=== PATIENT | male | born 1955 | race Caucasian/White ===

== ENCOUNTER 2019-10-15 15:45 | Inpatient (IN) | payer OTHER ==
[2019-10-15 16:50] LABS: Actual Bicarbonate (HCO3a) 22.7 mEq/L (22-28); CO2 Tension 34.2 mmHg (35.0-45.0); Calcium, Ionized 0.95 mmol/L (1.12-1.30); Carboxyhemoglobin (COHb) 0.3 gm% (0.0-3.0); Hemoglobin (Hb) 9.9 g/dL (14.0-18.0); O2 Tension (PaO2) 322.6 mmHg (> 80.0); Potassium - ABG Lab 4.05 mmol/L (3.70-5.30); pH, Arterial 7.44 (7.35-7.45)
[2019-10-15 16:53] LABS: Puncture Site RBRACH
[2019-10-15] MEDS ORDERED: Ventilator Sedation Protocol 1 EACH FS SCH (16:59)
[2019-10-15] MEDS ORDERED: Acetaminophen 650 MG Suppository PR PRN (16:59)
[2019-10-15] MEDS ORDERED: Norepinephrine 8 MG/0.9% NS 250 ML IVPB SCH (17:00)
[2019-10-15] MEDS ORDERED: Sodium Chloride 0.9% 1,000 ML IV SCH ×2 (17:00→19:00)
--- NOTE | 2019-10-15 17:26 | RAD ---
PORTABLE CHEST: 10/15/19 HISTORY: Sepsis. Endotracheal and NG tubes are in satisfactory position. Heart size is within normal limits for portab le technique. Pacemaker is present. Pulmonary vascular engorgement and increased interstitial alveola r lung changes mainly in the perihilar distribution with small effusions. IMPRESSION: Findings suggesting pulmonary edema. POS: PRIYANKA
[2019-10-15] MEDS ORDERED: Piperacillin/Tazobactam 4.5 GM VIAL ONE (17:43)
[2019-10-15 17:48] LABS: #Eosinphils 0.1 thou/uL (0.0-0.7); #Lymphocytes 0.6 thou/uL (1.20-3.40); #Monocytes 0.9 thou/uL (0.11-0.59); #Neutrophils 10.8 thou/uL (1.40-6.50); %Basophils 0.3 % (0.0-1.0); %Eosinophils 0.7 % (0.0-10.0); %Lymphocytes 4.6 % (21.0-51.0); %Monocytes 6.9 % (0.0-10.0); %Neutrophils 87.5 % (42.0-75.0); Hemoglobin 10.1 g/dL (14.0-18.0); Mean Corpuscular HGB CONC 32.6 g/dL (32.0-36.0); Mean Corpuscular Hemoglobin 33.6 pg (27.0-31.0); Platelet Count 159 thou/uL (130-400); RBC Distribution Width 12.8 % (11.5-14.5); White Blood Cell (WBC) Count 12.3 thou/uL (4.8-10.8)
[2019-10-15 18:10] LABS: ALT (SGPT) 83 U/L (8-55); AST (SGOT) 175 U/L (5-34); Albumin 2.8 g/dL (3.4-4.8); Alkaline Phosphatase 81 U/L (40-110); Anion Gap 17 mmol/L (10-20); BUN (Urea Nitrogen) 17 mg/dL (8.4-25.7); Bilirubin, Total 1.8 mg/dL (0.2-1.2); Calc. Creatinine Clearance 43 mL/min (70-130); Calcium 7.1 mg/dL (7.8-10.44); Carbon Dioxide 25 mmol/L (23-31); Chloride 95 mmol/L (98-107); Estimated GFR-MDRD 53; Globulin 2.7 g/dL (2.4-3.5); Glucose 145 mg/dL (80-115); Potassium 4.4 mmol/L (3.5-5.1); Protein, Total 5.5 g/dL (5.8-8.1); Sodium 133 mmol/L (136-145)
[2019-10-15] MEDS ORDERED: fentaNYL Citrate/PF 2,000 MCG in Sodium Chloride 0.9% 60 ML IV SCH (18:15)
[2019-10-15] MEDS ORDERED: DISCONTINUE PREVIOUS NARCOTIC PAIN MEDICATIONS AND BENZODIAZEPINES FS SCH (18:15)
[2019-10-15] MEDS ORDERED: Propofol 1,000 MG/100 ML VIAL IV PRN (18:15)
[2019-10-15] MEDS ORDERED: Lorazepam 2 MG/ML VIAL SLOW IVP PRN (18:15)
[2019-10-15] MEDS ORDERED: Propofol BOLUS 1,000 MG/100 ML VIAL IV PRN (18:15)
[2019-10-15] MEDS ORDERED: Morphine 2 MG/ML SYRINGE SLOW IVP PRN (18:15)
[2019-10-15] MEDS ORDERED: Fentanyl BOLUS 250 ML IVPB PRN (18:15)
[2019-10-15 18:49] LABS: Troponin I 1.195 ng/mL (< 0.028)
[2019-10-15] MEDS ORDERED: Vancomycin 1 GM in Premix Bag 1 BAG IVPB SCH (21:00)
[2019-10-15 21:11] LABS: Lactic Acid 4.8 mmol/L (0.5-2.2)
--- NOTE | 2019-10-15 21:15 | CON ---
DATE OF CONSULTATION: 10/15/2019 CHIEF COMPLAINT: Status post resuscitation. HISTORY OF PRESENT ILLNESS: The patient is a 64-year-old male, resident of [facility]. He has a past history notable for Hodgkin lymphoma treated in the early with what appears to be radiation and chemotherapy. He additionally has a history of chronic kidney disease, hypertension, coronary artery disease with a known reduced ejection fraction of approximately 10% to 15% based on echocardiogram done in May 2019. At that time, the patient had a pacing defibrillator placed. The patient was at the medical unit today when he began to complain of chest pain. According to the nurse at the unit with whom I had a conversation, he described it as pressure, graded 7/10. Onset apparently occurred before he went to the bathroom, but it was accentuated while on the commode. His initial blood pressure was 102 /71, heart rate 76. The patient denied any cough, congestion, or fever. 50 other residents of his dormitory are currently in isolation due to one inmate who has been transferred to [place] and COVID test is pending. The patient received nitroglycerin x1 and aspirin at the unit. His blood pressure fell to approximately 95/62. EMS was notified and at the time of their arrival, the patient's blood pressure was 87/59. The patient was transferred to the emergency room at [facility] at which time he was continuing to complain of pain. His initial evaluation there included an electrocardiogram with sinus tachycardia, left anterior hemiblock, and lateral T-wave inversions which might represent ischemia. His laboratory additionally included normal white count with hemoglobin 10.9. Sodium was 132, his CO2 was 33, creatinine 1.3 with predicted GFR of 59. Liver tests were within normal limits. Total CK is elevated at 433 with MB of 5.8 and relative index of 1.3%. Troponin was negative at 0.03. Influenza A and B were negative. BNP is 770. His lactic acid was 3.8. His chest x-ray showed borderline cardiomegaly with central vascular predominance suggesting volume overload. While in the emergency room, the patient had a CTA of the chest demonstrating moderate right and small left pleural effusion. No obvious pulmonary embolus was identified. He had an acute deterioration in status and at approximately 1350 CPR was initiated. This was continued intermittently based on notes I have seen from the guards with final congregation of pulse approximately 37 minutes thereafter. He was presumed to have had a possible embolus and received empiric administration of tPA following which the patient had the rapid development of hematoma in the right pectoralis muscle. He was placed on pressor therapy and has been transferred to [facility] for ICU management. I have been unable to obtain a history from the patient. I have spoken to the nurse at the [facility] unit. I reviewed the available medical record. According to the chart the patient is a 64-year-old male with no reported medical allergies. MEDICATIONS: At the unit include; 1. Aspirin 81 daily. 2. Atorvastatin 40 daily. 3. Coreg 3.125 b.i.d. 4. Lasix 40 daily. 5. Lisinopril 2.5 daily. 6. Potassium 10 mEq daily. SOCIAL HISTORY: According to the chart, the patient has never smoked. PAST MEDICAL HISTORY: Remarkable for coronary disease with known severe depressed LV function and subsequent placement of a pacing defibrillator. He has a history of Hodgkin lymphoma in the early 1999s. He has multiple tattoos over the chest consistent with radiation port in a mantle distribution. He does not have history of known liver disease or previous stroke. The chart reflects a diagnosis of hypothyroidism, although he is not on any supplementation. He does not have a history of known tuberculosis. REVIEW OF SYSTEMS: Unobtainable from the patient at this time due to intubated, nonresponsive status. FAMILY HISTORY: Unobtainable. PHYSICAL EXAMINATION: VITAL SIGNS: Blood pressure is currently 132/88, heart rate 68, pulse oximetry 100%. He is orally intubated with a 7.5 endotracheal tube. I have made ventilator adjustments including reduction in FiO2 from 60% to 40% and I reduced his PEEP. His tidal volume is 450. Backup rate is 16, pressure support of 12. The patient remains on low-dose norepinephrine. GENERAL: He is an asthenic gentleman who appears older than his stated age. It was reports by the guards that he apparently induces vomiting. He is not responsive to verbal stimuli. HEENT/NECK: Shows moderately dilated pupils, which are not reactive to light. There is no abnormal doll's eye maneuver. His oropharynx is difficult to assess , although he is edentulous. I do not see obvious heath. He has no JVD. He has no cervical lymphadenopathy. He has no underlying icterus. CHEST: Shows clear lung bob without wheezing. He is not assisting above the current ventilator rate. He has hypertrophy of the right pectoralis which is reported to have acutely developed following tPA consistent with hematoma. There is no evidence of subcu emphysema. HEART: Regular rate and rhythm. I do not hear a murmur. ABDOMEN: Soft. There is no organomegaly. Bowel sounds are normal. : Deferred. EXTREMITIES: Show no edema. His lower legs and feet are cool, but not dusky or cyanotic. He does have palpable brachial pulse. I do not feel radial pulses. SKIN: Shows tattoos over the chest and abdomen consistent with his previous radiation therapy. NEUROLOGIC: Shows no response to verbal stimuli. Cranial nerves are as above. I do not get any movement to Babinski testing. There is no withdrawal to pain. His DTRs are currently flaccid. LABORATORY DATA: Chemistries done and other studies at [facility] prior to transfer had been reviewed. He has had a chest x-ray here following admission, which shows good placement of his endotracheal tube. There was bilateral central consolidation most consistent with pulmonary edema. His blood gas has shown good oxygenation status with pH 7.44, CO2 of 32, pO2 of 322, and bicarbonate of 28. White count is now at 12,300 and hemoglobin is 12.1. His lactic acid is 5.1. Cortisol is normal at 15. His AST and ALT have increased modestly since taken earlier today at [facility]. IMPRESSION: 1. Status post cardiac arrest, most likely due to underlying cardiomyopathy. Whether this is true ischemic event or simply the natural deterioration of rhythm associated with profound cardiomyopathy is unclear. His troponins are still pending. His x-ray is consistent with pulmonary edema. His elevated liver tests are also consistent with shock. I do not think that his cardiac arrest was related to pulmonary embolus and seems to be at least decently excluded by his preservation of alveolar to arterial gradient and a CT which did not show filling defects. We will continue supportive care from an OR perspective. 2. Prolonged cardiopulmonary resuscitation with apparent anoxic/hypoxic central nervous system injury. At this time, the patient is not making any appropriate responses. He has not had any seizure activity. We will continue to follow for at least 24 hours before making a more formal determination. The patient does have a outside hospital do not resuscitate status and his code status will be changed to reflect do not resuscitate. 3. Possible COVID exposure. The patient was in a dormitory with an individual who is currently a suspect. We will keep him in COVID isolation until we hear from the index case. If the index case is negative, I think that we can reasonably discontinue COVID isolation at that time. 4. Remote history of lymphoma, presumably in remission. 5. 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 6. Known atherosclerotic vascular disease with severely depressed left ventricular function. 7. History of mild renal insufficiency. PLAN: The patient is currently receiving ventilatory support and I have made ventilator adjustments as described above. We converted him from full code to DNR status. He continues on pressors. We will follow his neurologic status, although I greatly suspect he has suffered a fairly profound anoxic injury. The severity of his LV function portends an extremely poor prognosis. He is on empiric antibiotics pending culture return, although I think it is very unlikely this represents pneumonia as a precipitating cause. He will remain on COVID precautions until we have results of his possible contact. Globally, his prognosis is extremely poor. Critical Care was rendered for 65 minutes including direct care of the patient, converstaion with the hospitalist and the nurse at the [facility] and review of the record. The Pulmonary Service will continue to follow and provide additional assistance as appropriate. Thank you for this consultation. Job ID: [id number] MTDDiaz
[2019-10-15 22:18] LABS: Anion Gap 24 mmol/L (10-20); Calc. Creatinine Clearance 42 mL/min (70-130); Calcium 7.1 mg/dL (7.8-10.44); Carbon Dioxide 16 mmol/L (23-31); Chloride 98 mmol/L (98-107); Estimated GFR-MDRD 52; Glucose 145 mg/dL (80-115); Sodium 133 mmol/L (136-145)
[2019-10-15 22:28] LABS: BUN (Urea Nitrogen) 19 mg/dL (8.4-25.7)
[2019-10-15 22:29] LABS: Magnesium 2.1 mg/dL (1.6-2.6)
[2019-10-16] MEDS: Piperacillin/Tazobactam 3.375 GM in Sodium Chloride 0.9% 100 ML IVPB SCH ×4 (00:13→17:53)
[2019-10-16] MEDS: EPINEPHrine 1 MG, Admixture Fee 1 EACH in Dextrose 5% in Water 250 ML IVPB SCH ×3 (00:46→11:07)
[2019-10-16] MEDS ORDERED: Sodium Chloride 0.9% 1,000 ML IV SCH (04:45)
[2019-10-16 07:58] LABS: Actual Bicarbonate (HCO3a) 23.2 mEq/L (22-28); Base Excess (BEa) 0.2 mEq/L (-2.0 to +3.0); CO2 Tension 30.7 mmHg (35.0-45.0); Calcium, Ionized 0.91 mmol/L (1.12-1.30); Hemoglobin (Hb) 8.1 g/dL (14.0-18.0); O2 Tension (PaO2) 70.3 mmHg (> 80.0); Potassium - ABG Lab 4.13 mmol/L (3.70-5.30)
[2019-10-16 08:04] LABS: Puncture Site L.B.
[2019-10-16 08:05] LABS: ALV-art Gradient 176.525 (0-20)
--- NOTE | 2019-10-16 09:17 | PRG ---
DATE OF SERVICE: 10/16/2019 SUBJECTIVE: The patient awakened during the night and is now alert and follow simple commands. He nods his head and confirms that he is having pain in his chest most likely related to CPR. He does not have complaints of air hunger. OBJECTIVE: VITAL SIGNS: Blood pressure today is reported at 87/53. He has had relatively even in and out over the past 24 hours. He is not requiring sedation. He remains intubated and he is assisted in the ventilator. LUNGS: Showed diminished breath sounds throughout all lung bob. HEART: Regular rate and rhythm with monitor demonstrating sinus rhythm at 98. His pulse ox is 100%. ABDOMEN: Soft. There is no change in the hematoma over the right pectoralis area. He has no peripheral edema. EXTREMITIES: His lower feet remained cool, but not cyanotic. LABORATORY DATA: Electrolytes this morning include sodium 133, potassium 5.0, bicarbonate is 16. BUN 19, creatinine 1.39. Lactic acid peaked at 5.1, is down to 4.8. Troponin peaked at 1.2. IMPRESSION: 1. Status post cardiopulmonary arrest. The patient presented with complaints of chest pain and while in the emergency room had cardiac arrest. He had markedly prolonged resuscitation, although it now appears that he has awakened without significant neurologic defect. His troponin is slightly elevated. He does have known severe cardiomyopathy with an EF of 15% and presumably that is the underlying etiology for his cardiac arrest. 2. Rule out COVID. The patient is from [facility] unit, where he lives in a dormitory with a suspect. He remains in COVID isolation until the suspect test has returned. PLAN: 1. We will reduce his IMV and hope to rapidly wean to extubation today, if not tomorrow. 2. Continue antibiotics. Culture today is negative. I think that his radiographic findings are most consistent with pulmonary edema. 3. He will need further cardiac assessment, although likely done on an outpatient basis. I doubt that he has significant options given his known EF of 15%. He is followed at the [facility] at [facility]. Job ID: [id number]
--- NOTE | 2019-10-16 09:33 | RAD ---
PORTABLE CHEST: Date: 10/16/2019 PROVIDED CLINICAL HISTORY: Respiratory insufficiency. FINDINGS: Comparison with 10/15/2019. Significant interval change with respect to the prior examination is not apparent. IMPRESSION: As above. POS: YESIKA
[2019-10-16] MEDS: EPINEPHrine 2 MG, Admixture Fee 1 EACH in Dextrose 5% in Water 250 ML IVPB SCH ×5 (12:46→23:16)
[2019-10-16] MEDS: Lidocaine 5% Patch TD SCH (14:43)
[2019-10-16] MEDS: Ondansetron PF 4 MG/2 ML Vial IVP PRN (17:53)
--- NOTE | 2019-10-16 19:05 | PDOC.EVN ---
Event Note - Event Note Event Note: Chart reviewed. Events noted. Pt was not seen due to PPE preservation policy. PCCM following. Briefly, pt admitted for COVID r/o and CHF exac. COVID result pending, sent from [facility]. Pt was extubated earlier today, continues to need pressor support.
[2019-10-16] MEDS: Vancomycin HCl 750 MG in Sodium Chloride 0.9% 250 ML 250 ML IVPB SCH (21:36)
[2019-10-16] MEDS: Sodium Chloride 0.9% 1,000 ML IV SCH (22:25)
[2019-10-17] MEDS: Piperacillin/Tazobactam 3.375 GM in Sodium Chloride 0.9% 100 ML IVPB SCH ×4 (01:12→17:57)
[2019-10-17] MEDS: Sodium Chloride 0.9% 1,000 ML IV SCH ×2 (01:19→20:59)
[2019-10-17] MEDS: EPINEPHrine 2 MG, Admixture Fee 1 EACH in Dextrose 5% in Water 250 ML IVPB SCH ×6 (02:03→20:59)
[2019-10-17] MEDS: Lidocaine Patch Removal 1 EACH TOP SCH (04:15)
[2019-10-17 04:56] LABS: Anion Gap 21 mmol/L (10-20); BUN (Urea Nitrogen) 30 mg/dL (8.4-25.7); Calc. Creatinine Clearance 35 mL/min (70-130); Calcium 6.9 mg/dL (7.8-10.44); Carbon Dioxide 20 mmol/L (23-31); Chloride 94 mmol/L (98-107); Estimated GFR-MDRD 42; Glucose 108 mg/dL (80-115); Potassium 4.5 mmol/L (3.5-5.1); Sodium 130 mmol/L (136-145)
[2019-10-17 05:05] LABS: Band 36 % (5-11); Hemoglobin 7.4 g/dL (14.0-18.0); Lymphocytes 4 % (21-51); MDiff Complete? YES; Mean Corpuscular HGB CONC 33.1 g/dL (32.0-36.0); Mean Corpuscular Hemoglobin 33.8 pg (27.0-31.0); Mean Platelet Volume 8.2 fL (7.4-10.4); Monocytes 2 % (0-10); Neutrophil 58 % (42-75); Platelet Count 127 thou/uL (130-400); Platelet Morphology Comment Appears Adequate; RBC Distribution Width 13.1 % (11.5-14.5); Red Blood Cell (RBC) Count 2.18 mill/uL (4.70-6.10); White Blood Cell (WBC) Count 20.5 thou/uL (4.8-10.8)
--- NOTE | 2019-10-17 05:17 | HP ---
He is a prisoner, no PCP. HISTORY OF PRESENT ILLNESS: The patient is currently in the [facility] Critical [facility] Unit. He is transferred from the [facility]. He was seen there and evaluated. The patient presented with chest pain of 4 days duration, some shortness of breath. It was noted he is a prisoner on a unit that has a possible COVID case. Denies any cough or fever. Reporrts he has had prior episodes of volume overload. His Lasix is not working as well as usual. He reports some left-sided leg swelling. He notes his normal blood pressure is in the mid 80s to low 90s systolic. His pain is nonexertional. PAST MEDICAL HISTORY: He has a history of coronary artery disease, congestive heart failure, lymphoma/leukemia, hypothyroidism, gastroesophageal reflux disease. PAST SURGICAL HISTORY: Pacemaker. CURRENT HOME MEDICINES: 1. Aspirin 81 mg a day. 2. Atorvastatin 40 mg a day. 3. Coreg 3.125 mg twice a day. 4. Lasix 40 mg a day. 5. Lisinopril 2.5 mg a day. 6. Potassium chloride 10 mEq a day. ALLERGIES: NO KNOWN DRUG ALLERGIES. FAMILY HISTORY: Unobtainable from patient as he is currently intubated and sedated. SOCIAL HISTORY: No alcohol. No tobacco. Unable to obtain code status due to the fact that he is intubated. REVIEW OF SYSTEMS: Unobtainable as patient is intubated, nonresponsive. PHYSICAL EXAMINATION: GENERAL: He is an asthenic male, intubated, nonresponsive. HEAD, EYES, EARS, NOSE, AND THROAT: Reveals pupils dilated, fixed. Negative doll's eyes. Tympanic membranes are clear. Nose is clear. Oral mucous membranes are damp. He has an oral endotracheal tube. CHEST: Decreased breath sounds. Fine rales in the left upper chest and breath sounds are diminished diffusely with no rhonchi or wheezes audible. HEART: Heart sounds were distant. No murmurs or gallops were appreciated. ABDOMEN: Soft. Bowel sounds are diminished. There is no tenderness. No hepatosplenomegaly. No mass. No rebound. EXTREMITIES: Cold with no distinct cyanosis or clubbing. SKIN: No bruises or rash. HEME/LYMPH: No tender or swollen lymph nodes in axilla, inguinal, or cervical area. NEUROLOGIC: Pupils fixed. Negative doll's eyes. Face is symmetric, areflexic, extremities basically flaccid. Toes neutral. PULSES: Carotid, radial, and femoral pulses palpable. Pedal pulses were not palpable. LABORATORY DATA: Laboratory done at the [facility] Emergency Room. EKG; sinus tachycardia, left anterior fascicular block, poor R-wave progression in the precordial leads, diffuse ST-T abnormality, personally reviewed. CBC; white count 5.1, hemoglobin 10.9, platelet count 229,000. Sodium 132, potassium 5.1, chloride 95, CO2 of 33, blood sugar 93, BUN 16, creatinine 1.3, albumin 3.4, bilirubin 1.0, AST 47, ALT 32, alkaline phosphatase 81. CK elevated at 433, CK-MB 5.8, troponin 0.03. Lipase 68. Influenza A/B negative. BNP 770, high normal 0 to 100. UA is unremarkable. Chest x-ray revealed cardiomegaly with increased interstitial densities in the right upper lung zone and right base, small bilateral pleural effusions. CT of the chest, moderate right pleural effusion, small left pleural effusion, right upper lobe parenchymal changes, left subclavian AICD in place. ADMITTING DIAGNOSES: 1. Status post cardiopulmonary arrest, on mechanical ventilation. 2. Shock syndrome, on norepinephrine. 3. COVID suspect. 4. History of congestive heart failure. 5. Coronary artery disease. 6. Pneumonia. 7. Pleural effusions. 8. Hyponatremia. 9. Anemia. 10. Lymphoma/leukemia. 11. Lactic acidosis. PLAN: 1. Pulmonary and Critical Care stitching machine setter consult. 2. Ventilator adjustment per pulmonology. 3. Pressors to keep blood pressure in the 90 to 100 systolic range. 4. Cultures have been obtained. 5. Zosyn and vancomycin. The patient is currently stabilized with a blood pressure of 124/89, pulse 110 on a ventilator. Current arterial blood gases; pH 7.44, pCO2 of 34, PO2 of 326. We will discuss with stitching machine setter when available. An echocardiogram has been ordered. Repeat chest x-ray and EKG have been ordered. Laboratory will be ordered for the a.m. He will remain a COVID suspect in quarantine, pending on the COVID test. Job ID: [id number]
--- NOTE | 2019-10-17 08:30 | PRG ---
DATE OF SERVICE: 10/17/2019 SUBJECTIVE: Mr. Matthews was successfully extubated yesterday and through the night, has been on nasal cannula oxygen. He is alert, but complains of ongoing chest discomfort and shortness of breath associated with cough, associated with thick sputum, which he cannot clear. Some of this preceding his admission, but others are related to the CPR which he received. He denies any fever. Over the night, he has remained on epinephrine drip, falsely targeted I think to a blood pressure higher than his normal. His echocardiogram has an EF of 10% to 15% and the patient states that his normal blood pressure is in the 80s. This is consistent with his medication list including extremely low doses of SAMY inhibitor and Coreg. We will try to reduce the dose and follow his symptoms. Fortunately, his COVID test is negative. PHYSICAL EXAMINATION: VITAL SIGNS: Blood pressure currently 117/57, heart rate 90, saturation 100% on nasal oxygen. He has had significant fluid positive balance of almost 5 L since the time of admission. GENERAL: He has a raspy voice. He is pale and appears older than his stated age. He is awake, alert, and answers questions appropriately. No distress NECK: He does have external jugular venous distention. LUNGS: He has bilateral coarse rhonchi in all lung bob. HEART: Regular rate and rhythm by monitor. I cannot hear S1, S2 due to his underlying lung sounds. ABDOMEN: Soft, mildly distended. There is no guarding or rebound. EXTREMITIES: He has trace ankle edema on the right. LABORATORY DATA: White count 20,500, hemoglobin 7.4, platelet count 117,000. Electrolytes include sodium 130, potassium 4.5, chloride 94, BUN 30, creatinine 1.7. Cultures have been negative. IMPRESSION: 1. Status post cardiac arrest. Most likely due to his severe cardiomyopathy. His peak troponin was 1.5. He has known severe ischemic cardiomyopathy with EF of approximately 15% and has a previously implanted defibrillator. 2. Renal insufficiency. 3. Leukocytosis. 4. Anemia. The patient received tPA at the time of CPR under the mistaken assumption that he might have a pulmonary embolus. Given his congestive heart failure and relative hypotension with the need for pressors, transfusion 1 unit is appropriate. PLAN: At this point, I would gradually reduce his epinephrine and target symptoms more than a specific number. I think his systolic blood pressure is probably in the 80s at best. He remains on empiric antibiotics for his leukocytosis. His x- ray has shown extensive consolidation more centrally suggestive of heart failure and we can try diuresis, but will be challenging given his blood pressure and heart failure status. Fortunately, his COVID test is negative. I have counseled the patient regarding the severity of his heart failure status. Continued length of stay is difficult to project. Job ID: [id number] [facility]
--- NOTE | 2019-10-17 08:51 | RAD ---
PORTABLE CHEST: DATE: 10/17/2019. PROVIDED CLINICAL HISTORY: Central line placement. FINDINGS: Comparison 10/16/2019. Interval extubation and removal of enteric catheter. Interval placement of rig ht subclavian central line, the tip of which overlies expected location of RA. Persistent bilateral airspace disease. No evidence for pneumothorax. Pleural-based opacity involving the right lateral h emithorax inferiorly may reflect fluid and appears more conspicuous than on prior. Cardiac and media stinal silhouette is unchanged in appearance. Vascular calcification and left subclavian cardiac pac ing device are redemonstrated. IMPRESSION: 1. Stable extensive bilateral airspace disease that may reflect pneumonia. 2. Support apparatus changes as above. POS: YESIKA
[2019-10-17] MEDS: Lidocaine 5% Patch TD SCH (17:42)
--- NOTE | 2019-10-17 19:45 | PDOC.EVN ---
Event Note - Event Note Event Note: Chart reviewed. Events noted. Pt was not seen due to PPE preservation policy. PCCM following. Pt was admitted for COVID r/o and CHF exac. Pt was extubated yesterday, continues to need pressor support. Difficulty diuresing given low blood pressure. Consult cardiology for opinion and help with management.
[2019-10-17 20:29] LABS: Vancomycin, Trough 15.5 ug/mL
[2019-10-17] MEDS: Vancomycin HCl 750 MG in Sodium Chloride 0.9% 250 ML 250 ML IVPB SCH (20:59)
[2019-10-18] MEDS: Piperacillin/Tazobactam 3.375 GM in Sodium Chloride 0.9% 100 ML IVPB SCH ×4 (00:06→17:09)
[2019-10-18] MEDS: Lidocaine Patch Removal 1 EACH TOP SCH (03:36)
[2019-10-18] MEDS: Ondansetron PF 4 MG/2 ML Vial IVP PRN ×2 (03:51→12:03)
[2019-10-18 05:01] LABS: Band 20 % (5-11); Hemoglobin 8.8 g/dL (14.0-18.0); Hypochromia SLIGHT = 6-15 cells (100X) (0-5/hpf); Lymphocytes 6 % (21-51); MDiff Complete? YES; Mean Corpuscular Hemoglobin 33.4 pg (27.0-31.0); Mean Corpuscular Volume 98.1 fL (78.0-98.0); Mean Platelet Volume 8.6 fL (7.4-10.4); Metamyelocyte 1 % (0-0); Monocytes 2 % (0-10); Neutrophil 71 % (42-75); Platelet Count 101 thou/uL (130-400); Platelet Morphology Comment Appears Decreased; RBC Distribution Width 14.8 % (11.5-14.5); Red Blood Cell (RBC) Count 2.65 mill/uL (4.70-6.10); White Blood Cell (WBC) Count 18.7 thou/uL (4.8-10.8)
[2019-10-18 05:12] LABS: ALT (SGPT) 397 U/L (8-55); AST (SGOT) 516 U/L (5-34); Albumin 2.6 g/dL (3.4-4.8); Alkaline Phosphatase 88 U/L (40-110); Anion Gap 12 mmol/L (10-20); BUN (Urea Nitrogen) 34 mg/dL (8.4-25.7); Calc. Creatinine Clearance 36 mL/min (70-130); Carbon Dioxide 25 mmol/L (23-31); Chloride 97 mmol/L (98-107); Estimated GFR-MDRD 42; Globulin 2.7 g/dL (2.4-3.5); Glucose 98 mg/dL (80-115); Potassium 3.7 mmol/L (3.5-5.1); Protein, Total 5.3 g/dL (5.8-8.1); Sodium 130 mmol/L (136-145)
--- NOTE | 2019-10-18 08:05 | RAD ---
EXAM: CHEST ONE VIEW HISTORY: On ventilator. Follow-up evaluation. COMPARISON: 10/17/2019 FINDINGS: Right subclavian central venous catheter remains in place. Single lead left subclavian AICD device is also again noted in place. Cardiac silhouette is magnified by projection but stable in size. Pulmonary vascular congestion is again present. Bilateral interstitial and alveolar opacities are aga in seen in the lungs bilaterally greater on the right. Small left and moderate sized right pleural effusions are present. There is increased opacity in the right midlung zone which may represent fluid in the region of the fissure. Calcified mediastinal and left hilar lymph nodes are present. Osteopenia is present. IMPRESSION: 1. Persistent increased interstitial and alveolar opacities bilaterally which may be related to asymm etric pulmonary edema versus infectious process. 2. Small left and moderate size right pleural effusions.
--- NOTE | 2019-10-18 09:35 | PRG ---
DATE OF SERVICE: 10/18/2019 SUBJECTIVE: A 64-year-old gentleman, intubated, he was extubated yesterday. He is doing well. No respiratory distress. OBJECTIVE: VITAL SIGNS: Temperature 97, pulse 90, blood pressure 106/69, respirations 18. His I's and O's have been consistently negative. CHEST: Bilateral rhonchi and crackles. CARDIAC: Normal S1 and S2. No gallops. ABDOMEN: No masses. LABORATORY DATA: White count 18,000, H and H 8.8 and 26, platelet count is 101. Creatinine 1.6, sodium 130. Elevated liver function; AST and ALT 516 and 397. ASSESSMENT: Congestive cardiomyopathy, respiratory failure, right pleural effusion, renal failure, electrolyte imbalance. At this stage, made a DNR. Agree with supportive care. We will probably switch him over to oral antibiotics in the next 24 hours. His EF is 15%. He can probably be moved to telemetry. Job ID: [id number]
[2019-10-18] MEDS: Sodium Chloride 0.9% 1,000 ML IV SCH (11:52)
--- NOTE | 2019-10-18 12:19 | PQF ---
CLINICAL DOCUMENTATION IMPROVEMENT CLARIFICATION FORM: ICD-10 Updated PLEASE DO AN ADDENDUM TO THE PROGRESS NOTE WITH ANY DOCUMENTATION UPDATES OR ADDITIONS AND CARRY THROUGH TO DC SUMMARY. THANK YOU. DATE: 10/18/19 ATTN: DR. DUNCAN Please exercise your independent, professional judgment in responding to the clarification form. Clinical indicators are provided on the bottom of this form for your review Please check appropriate box(es): [ ] Sepsis present on admission [x ] Sepsis NOT present on admission [ ] Unable to determine Due to: Due to: [ ] Device (please specify) [ ] Implant [ ] Graft [ ] Infusion [ ] SIRS due to non-infectious process (please specify etiology) [ ] with organ dysfunction [ ] without organ dysfunction [ ] Severe sepsis present on admission [ ] Severe Sepsis NOT present on admission [ ] Unable to determine with acute organ dysfunction of: ____ [ ] Septic Shock present on Admission [ ] Septic Shock NOT present on Admission [ ] Unable to determine [ ] Localized infection without sepsis [ ] Other diagnosis [ ] Unable to determine For continuity of documentation, please document condition throughout progress notes and discharge summary. Thank You. 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 All Rights Reserved [email or web address] [facility]
--- NOTE | 2019-10-18 12:30 | PQF ---
CLINICAL DOCUMENTATION IMPROVEMENT CLARIFICATION FORM: ICD-10 Updated PLEASE DO AN ADDENDUM TO THE PROGRESS NOTE WITH ANY DOCUMENTATION UPDATES OR ADDITIONS AND CARRY THROUGH TO DC SUMMARY. THANK YOU. Date: 10/18/19 ATTN: DR. DUNCAN Please exercise your independent, professional judgment in responding to the clarification form. Clinical indicators are provided on the bottom of this form for your review Please check appropriate box(s): [ ] Protein Calorie Malnutrition: [ ] Mild [ ] Moderate [ ] Severe [ ] Other Malnutrition (please specify) __ [ ] Underweight without malnutrition [ ] Cachexia [ ] Other diagnosis [ ] Unable to determine In addition, please specify: Present on Admission (POA): [ ] Yes [ ] No [ ] Unable to determine CLINICAL INDICATORS - SIGNS / SYMPTOMS / LABS / RESULTS AND LOCATION IN MR "MALNUTRITION" PER CONSULTATION REPORT 10/14 "SEVERE TEMPORAL MUSCLE WASTING" (DIETARY ASSESSMENT 10/17) BMI 18.2 RISKS: "SELF-INDUCED BULEMIA" PER [facility]DC NURSE (DIETARY ASSESSMENT 10/15) TREATMENT: DIETARY CONSULT NUTRITIONAL SUPPLEMENTS Moderate Malnutrition (in acute illness) Energy Intake: <75% of estimated energy requirement for > 7 days Weight Loss: 1-2%/1 week; 5%/ 1 month; 7.5%/3 months Other: mild body fat loss; mild muscle mass loss; mild fluid accumulation; Severe Malnutrition (in acute illness) Energy Intake: < 50% of estimated energy requirement for > 5 days Weight Loss: >1-2%/1 week; >5%/1 month; >7.5%/3 months Other: moderate body fat loss; moderate muscle mass loss; moderate- severe fluid accumulation; measurably reduced ophthalmology technician strength Moderate Malnutrition (in chronic illness) Energy Intake: <75% of estimated energy requirement for >1 month Weight Loss: 5%/1 month; 7.5%/3 months; 10%/6 months; 20%/1 year Other: mild body fat loss; mild muscle mass loss; mild fluid accumulation Severe Malnutrition (in chronic illness) Energy Intake: <75% of estimated energy requirement for >1 month Weight Loss: >5%/1 month; >7.5%/3 months; >10%/6 months; >20%/1 year Other: severe body fat loss; severe muscle mass loss; severe fluid accumulation ; measurably reduced ophthalmology technician strength (This form is maintained as a part of the permanent medical record) 2014 [employer], [employer]. All Rights Reserved [email or web address]
--- NOTE | 2019-10-18 12:47 | PQF ---
CLINICAL DOCUMENTATION IMPROVEMENT CLARIFICATION FORM: ICD-10 Updated PLEASE DO AN ADDENDUM TO THE PROGRESS NOTE WITH ANY DOCUMENTATION UPDATES OR ADDITIONS AND CARRY THROUGH TO DC SUMMARY. THANK YOU. DATE: 10/18/19 ATTN: DR. DUNCAN Please exercise your independent, professional judgment in responding to the clarification form. Clinical indicators are provided on the bottom of this form for your review Please check appropriate box(s) to clarify if the following diagnosis has been ruled in or ruled out: PNEUMONIA [ x ] Ruled in diagnosis [x ] Continue to treat [ ] Resolved [ ] Ruled out diagnosis [ ] Improving [ ] Cannot rule out diagnosis [ ] Other diagnosis [ ] Unable to determine In addition, please specify: Present on Admission (POA): [ ] Yes [ ] No [ ] Unable to determine For continuity of documentation, please document condition throughout progress notes and discharge summary. Thank You. CLINICAL INDICATORS - SIGNS / SYMPTOMS / LABS / RESULTS AND LOCATION IN MR H&P: "PNEUMONIA" CXR 10/14: "PULMONARY EDEMA" "PULMONARY VASCULAR ENGORGEMENT AND INCREASED ALVEOLAR LUNG CHANGES MAINLY IN THE PERIHILAR DISTRIBUTION WITH SMALL EFFUSIONS" CXR 10/16: "STABLE EXTENSIVE BILATERAL AIRSPACE DISEASE THAT MAY REFLECT PNEUMONIA " WBC /: 12.3 WBC /5: 20.5 RISKS: PRISONER COVID-19 EXPOSURE (H&P /) TREATMENT: MECHANICAL VENTILATION IV ZOSYN (10/14-PRESENT) IV VANCOMYCIN (10/15-PRESENT) PULMONARY CONSULT CHEST XRAY 10/14, 10/16 (This form is maintained as a part of the permanent medical record) 2014 [employer]. All Rights Reserved [email or web address]
--- NOTE | 2019-10-18 13:00 | PQF ---
CLINICAL DOCUMENTATION IMPROVEMENT CLARIFICATION FORM: ICD-10 Updated PLEASE DO AN ADDENDUM TO THE PROGRESS NOTE WITH ANY DOCUMENTATION UPDATES OR ADDITIONS AND CARRY THROUGH TO DC SUMMARY. THANK YOU. DATE: 10/18/19 ATTN: DR. DUNCAN Please exercise your independent, professional judgment in responding to the clarification form. Clinical indicators are provided on the bottom of this form for your review Please check appropriate box(s): HEART FAILURE: A. ACUITY [ ] Acute [x ] Acute on Chronic [ ] Chronic B. TYPE [ x ] Systolic / HFrEF [ ] Diastolic / HFpEF [ ] Combined Systolic / Diastolic [ ] Hypertensive Heart and Kidney disease [ ] Hypertensive Heart Disease [ ] Hypertensive Kidney Disease [ ] Other diagnosis [ ] Unable to determine In addition, please specify: Present on Admission (POA): [ ] Yes [ ] No [ x ] Unable to determine For continuity of documentation, please document condition throughout progress notes and discharge summary. Thank You. CLINICAL INDICATORS - SIGNS / SYMPTOMS / LABS / RESULTS AND LOCATION IN EMR EVENT NOTE 10/16: "CHF EXACERBATION" "LEFT LEG SWELLING" (PER H&P) "BILATERAL RHONCHI AND CRACKLES" / "CONGESTIVE CARDIOMYOPATHY" (PER PULMONARY NOTE 10/17) ECHO REPORT 10/15: "EF 10-15%" "LEFT VENTRICULAR SIZE SEVERELY INCREASED" BNP 770 (PER H&P 10/14) RISKS: H/O CHF (H&P 10/14) H/O CAD (H&P) TREATMENT: ECHOCARDIOGRAM 10/15 CARDIAC MONITORING INTUBATION AND MECHANICAL VENTILATION (This form is maintained as a part of the permanent medical record) 2014 [employer]. All Rights Reserved [email or web address]
[2019-10-18] MEDS ORDERED: Famotidine 20 MG TAB PO SCH (14:15)
[2019-10-18] MEDS ORDERED: guaiFENesin ER 600 MG TAB PO SCH (14:15)
--- NOTE | 2019-10-18 14:22 | CON ---
DATE OF CONSULTATION: 10/18/2019 REASON FOR CONSULTATION: Cardiac arrest. HISTORY OF PRESENT ILLNESS: Mr. Matthews is a 64-year-old gentleman with a history of advanced ischemic cardiomyopathy, status post CA and stent placement. He had an ICD placed in May. This was placed in [facility] in [place]. He is currently an inmate. He recently presented with shortness of breath. He had lower extremity edema in addition to PND. He states he also had chest pressure, but chest pressure was worse with taking a deep breath. He apparently was in the [place] with increased number of inmates with COVID. He has been COVID negative. His most recent echo dated 10/16/2019, with LVEF of 10% to 15% with moderately enlarged right ventricle without aortic stenosis. Ilxdsyki-ao-ceejex pulmonary hypertension present. PAST MEDICAL HISTORY: 1. Known advanced ischemic cardiomyopathy, status post ICD placement. 2. Previous CA. 3. Previous stent placement. 4. Lymphoma. 5. Hypothyroidism. 6. Acid reflux. HOME MEDICATIONS: Include: 1. Aspirin. 2. Atorvastatin. 3. Coreg. 4. Lasix. 5. Lisinopril. 6. Potassium. ALLERGIES: NONE. SOCIAL HISTORY: No current tobacco or alcohol use. REVIEW OF SYSTEMS: A 10-point review of systems is reviewed and is as above, otherwise negative. PHYSICAL EXAMINATION: VITAL SIGNS: Blood pressure 102/59, pulse 89, temperature 98.3. GENERAL: The patient is a pleasant gentleman, in no acute distress. He does appear older than stated age. HEAD, EYES, EARS, NOSE AND THROAT: Sclerae without icterus. Mouth: Moist mucous membranes, normal palate. NECK: No jugular venous distention. Carotid upstroke is brisk. No bruits bilaterally. LUNGS: Clear to auscultation. HEART: Regular rate and rhythm, normal S1 and S2. ABDOMEN: Soft, nontender, nondistended. EXTREMITIES: No edema. PERTINENT LABORATORY DATA: Hemoglobin 8.8, hematocrit 26, white blood cell count 18.7. Peak troponin 1.2. IMPRESSION: 1. Cardiac arrest. 2. Ischemic cardiomyopathy. 3. Status post stent placement. RECOMMENDATIONS: Mr. Matthews has been told in the past that he has advanced cardiomyopathy. He would like to proceed with a more conservative approach. His symptoms do not appear to be anginal. His symptoms are worse with taking a deep breath. He also now, since CPR was performed, has chest wall tenderness with a hematoma overlying the right chest. At this point, continue conservative therapy. We would like to interrogate his ICD. Job ID: [id number]
[2019-10-18] MEDS: Lidocaine 5% Patch TD SCH (15:10)
[2019-10-18] MEDS ORDERED: Furosemide 40 MG/4 ML VIAL SLOW IVP SCH (18:15)
--- NOTE | 2019-10-18 18:16 | PDOC.HOSPP ---
- Subjective Encounter Date: 10/18/19 Encounter Time: 18:13 Subjective: Feeling SOB. Same as yesterday. Cough productive of dark blood tinged sputum. Reports edema. - Objective Vital Signs & Weight: Vital Signs (12 hours) Temp Pulse Resp BP Pulse Ox 10/18/19 15:19 98.6 F 94 18 102/64 97 10/18/19 13:14 89 14 10/18/19 11:55 98.3 F 89 18 102/59 L 97 10/18/19 09:40 98.2 F 88 12 92/53 L 93 L 10/18/19 07:54 97.7 F 10/18/19 07:16 100 Weight Admit Weight 119 lb 7.84 oz Weight 119 lb 7.84 oz Most Recent Monitor Data Heart Rate from ECG 88 NIBP 108/69 NIBP BP-Mean 82 Respiration from ECG 16 SpO2 100 I&O: 10/17/19 10/18/19 10/19/19 06:59 06:59 06:59 Intake Total 4237 3229.2 1350 Output Total 610 993 250 Balance 3627 2236.2 1100 Result Diagrams: 10/18/19 03:45 10/18/19 03:45 Hospitalist ROS - Medication Medications: Active Medications Generic Name Dose Route Start Last Admin Trade Name Freq PRN Reason Stop Dose Admin Albuterol/Ipratropium 3 ml 10/18/19 13:00 10/18/19 13:14 Duoneb NEB 3 ml [id number] THO Administration Piperacillin Sod/Tazobactam 100 mls @ 200 mls/hr 10/15/19 23:59 10/18/19 17: 09 Sod 3.375 gm/ Sodium Chloride IVPB 100 mls Q6HR THO Administration Vancomycin HCl 750 mg/ Sodium 250 mls @ 250 mls/hr 10/16/19 21:00 10/17/19 20 :59 Chloride IVPB 250 mls Q24HR THO Administration Epinephrine 2 mg/ 252 mls @ 0 mls/hr 10/16/19 12:30 10/17/19 20:59 Miscellaneous Medication 1 IVPB 252 mls each/ Dextrose/Water INF THO Administration Protocol Titrate Lidocaine 1 patch 10/16/19 15:00 10/18/19 15:10 Lidoderm 5% Patch TD 1 patch 1500 THO Administration Miscellaneous Medication 1 each 10/17/19 03:00 10/18/19 03:36 Lidocaine Patch Removal TOP 1 each 0300 THO Administration Ondansetron HCl 4 mg 10/15/19 16:59 10/18/19 12:03 Zofran IVP 4 mg Q6H PRN Administration Nausea/Vomiting - Exam General Appearance: NAD, awake alert Eye: PERRL ENT: normocephalic atraumatic Heart: RRR, no murmur, no gallops, no rubs, normal peripheral pulses Respiratory: no ronchi, normal chest expansion, rales (bilateral), tachypneic Gastrointestinal: soft, non-tender, non-distended, normal bowel sounds, no palpable masses, no hepatomegaly, no splenomegaly, no bruit Extremities: 1+ LE edema Extremities - other findings: Edema of UE's, trunk. Skin: normal turgor Neurological: no focal deficits Musculoskeletal: generalized weakness, diffuse muscle atrophy Psychiatric: normal affect, normal behavior, A&O x 3 Hosp A/P (1) Cardiac arrest Code(s): I46.9 - CARDIAC ARREST, CAUSE UNSPECIFIED Status: Acute (2) Successful cardiopulmonary resuscitation Code(s): Z92.89 - PERSONAL HISTORY OF OTHER MEDICAL TREATMENT Status: Acute (3) Cardiomyopathy Code(s): I42.9 - CARDIOMYOPATHY, UNSPECIFIED Status: Acute (4) Acute on chronic systolic and diastolic heart failure, NYHA class 4 Code(s): I50.43 - ACUTE ON CHRONIC COMBINED SYSTOLIC AND DIASTOLIC HRT FAIL Status: Acute (5) Cardiogenic shock Code(s): R57.0 - CARDIOGENIC SHOCK Status: Acute (6) Shock liver Code(s): K72.00 - ACUTE AND SUBACUTE HEPATIC FAILURE WITHOUT COMA Status: Acute (7) Pulmonary contusion Code(s): S27.329A - CONTUSION OF LUNG, UNSPECIFIED, INITIAL ENCOUNTER Status: Acute (8) Hyponatremia Code(s): E87.1 - HYPO-OSMOLALITY AND HYPONATREMIA Status: Acute (9) Anemia Code(s): D64.9 - ANEMIA, UNSPECIFIED Status: Acute (10) Leukocytosis Code(s): D72.829 - ELEVATED WHITE BLOOD CELL COUNT, UNSPECIFIED Status: Acute (11) Hemoptysis Code(s): R04.2 - HEMOPTYSIS Status: Acute (12) Protein-calorie malnutrition, moderate Code(s): E44.0 - MODERATE PROTEIN-CALORIE MALNUTRITION Status: Acute - Plan Cardiac arrest with successful resuscitation. Cardiogenic shock resolved. Pulm contusion from CPR with mild hemptysis. Worsening CHF on cxr. Add lasix now dose. May need to go back to scheduled dose as BP is low but stable. Resume ACEI as BP stabilizes. Interrogate defib. Chronic hyponatremia from CHF. LFT's increasing. Recheck the levels in am. Consistent with shock liver.
[2019-10-18] MEDS ORDERED: Melatonin 3 MG TAB PO PRN (20:13)
[2019-10-18] MEDS: guaiFENesin ER 600 MG TAB PO SCH (20:51)
[2019-10-18] MEDS: Famotidine 20 MG TAB PO SCH (20:51)
[2019-10-18] MEDS: Vancomycin HCl 750 MG in Sodium Chloride 0.9% 250 ML 250 ML IVPB SCH (20:59)
[2019-10-19] MEDS: Piperacillin/Tazobactam 3.375 GM in Sodium Chloride 0.9% 100 ML IVPB SCH ×4 (01:15→17:00)
[2019-10-19] MEDS: Lidocaine Patch Removal 1 EACH TOP SCH (03:42)
[2019-10-19 04:30] LABS: #Eosinphils 0.3 thou/uL (0.0-0.7); #Lymphocytes 0.6 thou/uL (1.20-3.40); #Monocytes 0.9 thou/uL (0.11-0.59); #Neutrophils 12.3 thou/uL (1.40-6.50); %Eosinophils 1.9 % (0.0-10.0); %Monocytes 6.6 % (0.0-10.0); %Neutrophils 87.6 % (42.0-75.0); Hemoglobin 8.7 g/dL (14.0-18.0); Mean Corpuscular HGB CONC 33.8 g/dL (32.0-36.0); Mean Corpuscular Hemoglobin 33.7 pg (27.0-31.0); Mean Corpuscular Volume 99.6 fL (78.0-98.0); Mean Platelet Volume 8.8 fL (7.4-10.4); Platelet Count 83 thou/uL (130-400); RBC Distribution Width 14.9 % (11.5-14.5); Red Blood Cell (RBC) Count 2.57 mill/uL (4.70-6.10)
[2019-10-19 04:59] LABS: ALT (SGPT) 290 U/L (8-55); AST (SGOT) 208 U/L (5-34); Albumin 2.5 g/dL (3.4-4.8); Alkaline Phosphatase 88 U/L (40-110); Anion Gap 12 mmol/L (10-20); BUN (Urea Nitrogen) 34 mg/dL (8.4-25.7); Bilirubin, Total 1.8 mg/dL (0.2-1.2); Calc. Creatinine Clearance 45 mL/min (70-130); Calcium 7.5 mg/dL (7.8-10.44); Carbon Dioxide 24 mmol/L (23-31); Chloride 100 mmol/L (98-107); Estimated GFR-MDRD 49; Globulin 2.8 g/dL (2.4-3.5); Glucose 130 mg/dL (80-115); Potassium 3.3 mmol/L (3.5-5.1); Protein, Total 5.3 g/dL (5.8-8.1); Sodium 133 mmol/L (136-145)
[2019-10-19] MEDS: guaiFENesin ER 600 MG TAB PO SCH ×2 (08:02→20:47)
[2019-10-19] MEDS: Famotidine 20 MG TAB PO SCH (08:03)
--- NOTE | 2019-10-19 08:59 | RAD ---
FRONTAL RADIOGRAPH CHEST: Date: 10/19/2019 COMPARISON: 10/18/2019. HISTORY: Respiratory distress. FINDINGS: Stable right-sided vascular catheter and single lead left-sided AICD. Heart and mediastinal contours are stable. There is pulmonary vascular congestion. Small left and small/moderate right pleural effus ion noted, unchanged. There is focal pulmonary parenchymal opacity in the right perihilar region, the mid right lung zone, and bilateral lung bases, suggesting a combination of pleural density and nonsp ecific pulmonary parenchymal consolidation/collapse. There has been no significant interval change wh en compared to the 10/18/2019 exam. IMPRESSION: Stable appearance of the chest as described above. POS: GUSTAVO
--- NOTE | 2019-10-19 10:09 | PRG ---
DATE OF SERVICE: 10/19/2019 SUBJECTIVE: A 64-year-old gentleman. This morning, he is better, less short of breath. OBJECTIVE: VITAL SIGNS: Temperature is 98, pulse 92, respiratory rate 14, saturation on 3 L, blood pressure 92/55. CHEST: Decreased breath sounds. No wheezing. CARDIAC: Normal S1 and S2. No gallops. ABDOMEN: No mass. LABORATORY DATA: Creatinine 1.46. White count 14,000. ASSESSMENT AND PLAN: Respiratory failure, bilateral pleural effusion, cardiomyopathy, status post cardiac arrest. No evidence of any infection at this stage. I discontinued vancomycin. I would probably switch him over to oral antibiotics tomorrow. Continue cardiac care, PT supportive care. He is a DNR. Job ID: [id number]
[2019-10-19] MEDS ORDERED: Furosemide 40 MG/4 ML VIAL SLOW IVP SCH (13:00)
--- NOTE | 2019-10-19 13:47 | PDOC.HOSPP ---
- Subjective Encounter Date: 10/19/19 Subjective: Feeling a little better. Says his legs are still puffy. Breathing a little better. Still has cough, but better. - Objective Vital Signs & Weight: Vital Signs (12 hours) Temp Pulse Resp BP Pulse Ox 10/19/19 12:46 98.2 F 91 20 91/55 L 91 L 10/19/19 07:51 98.0 F 92 14 92/55 L 95 10/19/19 03:28 98.4 F 91 18 101/61 93 L Weight Admit Weight 119 lb 7.84 oz Weight 134 lb 4.8 oz Most Recent Monitor Data Heart Rate from ECG 88 NIBP 108/69 NIBP BP-Mean 82 Respiration from ECG 16 SpO2 100 I&O: 10/18/19 10/19/19 10/20/19 06:59 06:59 06:59 Intake Total 3229.2 1970 Output Total 993 1100 Balance 2236.2 870 Result Diagrams: 10/19/19 04:15 10/19/19 04:15 Hospitalist ROS - Medication Medications: Active Medications Generic Name Dose Route Start Last Admin Trade Name Freq PRN Reason Stop Dose Admin Albuterol/Ipratropium 3 ml 10/18/19 13:00 10/19/19 09:52 Duoneb NEB Not Given [id number] Guaifenesin 1,200 mg 10/18/19 21:00 10/19/19 08:02 Mucinex PO 1,200 mg Q12HR THO Administration Piperacillin Sod/Tazobactam 100 mls @ 200 mls/hr 10/15/19 23:59 10/19/19 12: 42 Sod 3.375 gm/ Sodium Chloride IVPB 100 mls Q6HR THO Administration Lidocaine 1 patch 10/16/19 15:00 10/18/19 15:10 Lidoderm 5% Patch TD 1 patch 1500 THO Administration Melatonin 3 mg 10/18/19 20:13 10/18/19 20:51 Melatonin PO 3 mg HS PRN Administration Insomnia Miscellaneous Medication 1 each 10/17/19 03:00 10/19/19 03:42 Lidocaine Patch Removal TOP Not Given 0300 THO Ondansetron HCl 4 mg 10/15/19 16:59 10/18/19 12:03 Zofran IVP 4 mg Q6H PRN Administration Nausea/Vomiting - Exam General Appearance: NAD, awake alert Heart: RRR, no murmur, no gallops, no rubs, normal peripheral pulses Respiratory: no ronchi, normal chest expansion, rales Respiratory - other findings: Ecchymosis over sternal area (from CPR) Gastrointestinal: soft, non-tender, non-distended, normal bowel sounds, no palpable masses, no hepatomegaly, no splenomegaly, no bruit Extremities - other findings: Edema of UE's (dependent) not in LE's. Musculoskeletal: generalized weakness, diffuse muscle atrophy Psychiatric: normal affect, normal behavior, A&O x 3 Hosp A/P (1) Cardiac arrest Code(s): I46.9 - CARDIAC ARREST, CAUSE UNSPECIFIED Status: Acute (2) Successful cardiopulmonary resuscitation Code(s): Z92.89 - PERSONAL HISTORY OF OTHER MEDICAL TREATMENT Status: Acute (3) Cardiomyopathy Code(s): I42.9 - CARDIOMYOPATHY, UNSPECIFIED Status: Acute (4) Acute on chronic systolic and diastolic heart failure, NYHA class 4 Code(s): I50.43 - ACUTE ON CHRONIC COMBINED SYSTOLIC AND DIASTOLIC HRT FAIL Status: Acute (5) Cardiogenic shock Code(s): R57.0 - CARDIOGENIC SHOCK Status: Acute (6) Shock liver Code(s): K72.00 - ACUTE AND SUBACUTE HEPATIC FAILURE WITHOUT COMA Status: Acute (7) Pulmonary contusion Code(s): S27.329A - CONTUSION OF LUNG, UNSPECIFIED, INITIAL ENCOUNTER Status: Acute (8) Hyponatremia Code(s): E87.1 - HYPO-OSMOLALITY AND HYPONATREMIA Status: Acute (9) Anemia Code(s): D64.9 - ANEMIA, UNSPECIFIED Status: Acute (10) Leukocytosis Code(s): D72.829 - ELEVATED WHITE BLOOD CELL COUNT, UNSPECIFIED Status: Acute (11) Hemoptysis Code(s): R04.2 - HEMOPTYSIS Status: Acute (12) Protein-calorie malnutrition, moderate Code(s): E44.0 - MODERATE PROTEIN-CALORIE MALNUTRITION Status: Acute - Plan Cardiac arrest with successful resuscitation: Cardiogenic shock resolved. Defib printout pending. Ischemic cardiomyopathy: EF 10-15%. Defibrillator in place. Acute on chronic systolic heart failure: Had large volume resuscitation. Now has some overload. Diuresing as his BP tolerates. Add albumin to assist with BP and diuresis. Cards consult appreciated. Opted for conservative management and therefore, no dobutamine or milrinone. BP will not tolerate Coreg or ACEI. Pulm contusion from CPR: Mild hemptysis. Slightly improved. Chronic hyponatremia: From CHF. Stable. Shock Liver: LFT's improving. Recheck the levels in am. Pneumonia: Difficult assessment. Chronic findings, chf contributing to CXR findings. Pulm following De-escalating abx.
[2019-10-19] MEDS: Albumin 25% 25 GM/100 ML BOT IVPB SCH ×2 (14:18→19:12)
[2019-10-19] MEDS: Lidocaine 5% Patch TD SCH (14:19)
[2019-10-19 20:46] LABS: Vancomycin, Trough 16.3 ug/mL
[2019-10-20] MEDS: Piperacillin/Tazobactam 3.375 GM in Sodium Chloride 0.9% 100 ML IVPB SCH ×2 (00:31→05:39)
[2019-10-20] MEDS: Albumin 25% 25 GM/100 ML BOT IVPB SCH ×2 (01:13→07:13)
[2019-10-20] MEDS: Lidocaine Patch Removal 1 EACH TOP SCH (03:45)
[2019-10-20 04:08] LABS: #Eosinphils 0.4 thou/uL (0.0-0.7); #Lymphocytes 0.6 thou/uL (1.20-3.40); #Monocytes 0.7 thou/uL (0.11-0.59); #Neutrophils 8.3 thou/uL (1.40-6.50); %Basophils 0.1 % (0.0-1.0); %Eosinophils 4.2 % (0.0-10.0); %Lymphocytes 5.9 % (21.0-51.0); %Monocytes 7.1 % (0.0-10.0); %Neutrophils 82.8 % (42.0-75.0); Hemoglobin 7.5 g/dL (14.0-18.0); Mean Corpuscular HGB CONC 34.6 g/dL (32.0-36.0); Mean Corpuscular Hemoglobin 34.3 pg (27.0-31.0); Mean Corpuscular Volume 99.1 fL (78.0-98.0); Mean Platelet Volume 8.6 fL (7.4-10.4); Platelet Count 72 thou/uL (130-400); RBC Distribution Width 14.8 % (11.5-14.5); Red Blood Cell (RBC) Count 2.18 mill/uL (4.70-6.10)
[2019-10-20 04:27] LABS: ALT (SGPT) 200 U/L (8-55); AST (SGOT) 125 U/L (5-34); Albumin 3.6 g/dL (3.4-4.8); Alkaline Phosphatase 76 U/L (40-110); Anion Gap 11 mmol/L (10-20); BUN (Urea Nitrogen) 28 mg/dL (8.4-25.7); Bilirubin, Total 2.2 mg/dL (0.2-1.2); Calc. Creatinine Clearance 50 mL/min (70-130); Calcium 8.1 mg/dL (7.8-10.44); Carbon Dioxide 29 mmol/L (23-31); Chloride 101 mmol/L (98-107); Estimated GFR-MDRD 55; Globulin 2.3 g/dL (2.4-3.5); Glucose 88 mg/dL (80-115); Protein, Total 5.9 g/dL (5.8-8.1); Sodium 138 mmol/L (136-145)
[2019-10-20] MEDS: guaiFENesin ER 600 MG TAB PO SCH ×2 (08:36→21:03)
[2019-10-20] MEDS: Famotidine 20 MG TAB PO SCH (08:37)
[2019-10-20] MEDS: Furosemide 40 MG/4 ML VIAL SLOW IVP SCH (08:37)
--- NOTE | 2019-10-20 10:28 | PRG ---
DATE OF SERVICE: 10/20/2019 SUBJECTIVE: Joseph Matthews remains in monitored bed. OBJECTIVE: VITAL SIGNS: Stable. Temperature 98, pulse 108, respiratory rate on 2 L, blood pressure is 92/60. CHEST: Decreased breath sounds, no wheezing. CARDIAC: Normal S1 and S2. ABDOMEN: No masses. LABORATORY DATA: Creatinine 1.3, AST is elevated. White count 10,000. An x-ray yesterday still shows significant pleural effusion, right greater than left. ASSESSMENT: Cardiomyopathy, end-stage respiratory failure. I would discontinue the Zosyn, switch him to oral antibiotics. PT supportive care, eventually placement. Job ID: [id number]
[2019-10-20] MEDS: Amoxicillin/Potassium Clav 500 MG TAB PO SCH ×2 (11:13→21:03)
[2019-10-20] MEDS ORDERED: Acetaminophen 325 MG TAB PO SCH (14:00)
--- NOTE | 2019-10-20 14:28 | PDOC.HOSPP ---
- Subjective Encounter Date: 10/20/19 Subjective: Feeling a little better. Still has the chest congestion, but improved. Voiding well. - Objective Vital Signs & Weight: Vital Signs (12 hours) Temp Pulse Resp BP Pulse Ox 10/20/19 13:09 116 H 20 99 10/20/19 12:46 97.8 F 105 H 24 H 106/66 97 10/20/19 08:10 100 10/20/19 07:50 108 H 24 H 98 10/20/19 07:20 98.3 F 98 24 H 89/58 L 98 10/20/19 04:00 98.4 F 100 20 92/60 92 L Weight Admit Weight 119 lb 7.84 oz Weight 129 lb 11.2 oz Most Recent Monitor Data Heart Rate from ECG 88 NIBP 108/69 NIBP BP-Mean 82 Respiration from ECG 16 SpO2 100 I&O: 10/19/19 10/20/19 10/21/19 06:59 06:59 06:59 Intake Total 1970 1820 Output Total 1100 2625 Balance 870 -805 Result Diagrams: 10/20/19 03:47 10/20/19 03:47 Hospitalist ROS - Medication Medications: Active Medications Generic Name Dose Route Start Last Admin Trade Name Freq PRN Reason Stop Dose Admin Albuterol/Ipratropium 3 ml 10/18/19 13:00 10/20/19 13:09 Duoneb NEB 3 ml [id number] THO Administration Amoxicillin/Clavulanate Potassium 500 mg 10/20/19 09:00 10/20/19 11:13 Augmentin PO 10/25/19 09:01 500 mg Q12HR THO Administration Famotidine 20 mg 10/20/19 09:00 10/20/19 08:37 Pepcid PO 20 mg DAILY THO Administration Furosemide 40 mg 10/20/19 09:00 10/20/19 08:37 Lasix SLOW IVP 40 mg DAILY THO Administration Guaifenesin 1,200 mg 10/18/19 21:00 10/20/19 08:36 Mucinex PO 1,200 mg Q12HR THO Administration Lidocaine 1 patch 10/16/19 15:00 10/19/19 14:19 Lidoderm 5% Patch TD 1 patch 1500 THO Administration Melatonin 3 mg 10/18/19 20:13 10/18/19 20:51 Melatonin PO 3 mg HS PRN Administration Insomnia Miscellaneous Medication 1 each 10/17/19 03:00 10/20/19 03:45 Lidocaine Patch Removal TOP Not Given 0300 THO Ondansetron HCl 4 mg 10/15/19 16:59 10/18/19 12:03 Zofran IVP 4 mg Q6H PRN Administration Nausea/Vomiting - Exam General Appearance: NAD, awake alert Heart: RRR, no murmur, no gallops, no rubs, normal peripheral pulses Heart - other findings: Ecchymosis over sternum. Respiratory: CTAB, no wheezes, no rales, no ronchi, normal chest expansion, no tachypnea, normal percussion Gastrointestinal: soft, non-tender, non-distended, normal bowel sounds, no palpable masses, no hepatomegaly, no splenomegaly, no bruit Extremities: 1+ LE edema (UE's, dependent.) Neurological: no new deficit Musculoskeletal: generalized weakness Psychiatric: normal affect, normal behavior Hosp A/P (1) Cardiac arrest Code(s): I46.9 - CARDIAC ARREST, CAUSE UNSPECIFIED Status: Acute (2) Successful cardiopulmonary resuscitation Code(s): Z92.89 - PERSONAL HISTORY OF OTHER MEDICAL TREATMENT Status: Acute (3) Cardiomyopathy Code(s): I42.9 - CARDIOMYOPATHY, UNSPECIFIED Status: Acute (4) Acute on chronic systolic and diastolic heart failure, NYHA class 4 Code(s): I50.43 - ACUTE ON CHRONIC COMBINED SYSTOLIC AND DIASTOLIC HRT FAIL Status: Acute (5) Cardiogenic shock Code(s): R57.0 - CARDIOGENIC SHOCK Status: Acute (6) Shock liver Code(s): K72.00 - ACUTE AND SUBACUTE HEPATIC FAILURE WITHOUT COMA Status: Acute (7) Pulmonary contusion Code(s): S27.329A - CONTUSION OF LUNG, UNSPECIFIED, INITIAL ENCOUNTER Status: Acute (8) Hyponatremia Code(s): E87.1 - HYPO-OSMOLALITY AND HYPONATREMIA Status: Acute (9) Anemia Code(s): D64.9 - ANEMIA, UNSPECIFIED Status: Acute (10) Leukocytosis Code(s): D72.829 - ELEVATED WHITE BLOOD CELL COUNT, UNSPECIFIED Status: Acute (11) Hemoptysis Code(s): R04.2 - HEMOPTYSIS Status: Acute (12) Protein-calorie malnutrition, moderate Code(s): E44.0 - MODERATE PROTEIN-CALORIE MALNUTRITION Status: Acute - Plan Cardiac arrest with successful resuscitation: Cardiogenic shock resolved. Defib printout will be reviewed. Ischemic cardiomyopathy: EF 10-15%. Defibrillator in place. Acute on chronic systolic heart failure: Had large volume resuscitation. Now has some overload. Diuresing as his BP tolerates. Added albumin to assist with BP and diuresis. Appears to have helped. Will see how he does without it now. Cards consult appreciated. Opted for conservative management and therefore, no dobutamine or milrinone. BP will not tolerate Coreg or ACEI. Pulm contusion from CPR: Mild hemptysis. Slightly improved. Chronic hyponatremia: From CHF. Stable. Shock Liver: LFT's improving. Recheck the levels in am. Pneumonia: Difficult assessment. Chronic findings, chf contributing to CXR findings. Pulm following De-escalating abx. Generalized debility: PT consult. Need to determine appropriate disposition.
[2019-10-20] MEDS: Lidocaine 5% Patch TD SCH (15:50)
[2019-10-20] MEDS ORDERED: Potassium Chloride 20 MEQ TAB PO SCH (16:45)
[2019-10-21] MEDS: Lidocaine Patch Removal 1 EACH TOP SCH (03:01)
[2019-10-21 04:32] LABS: #Eosinphils 0.4 thou/uL (0.0-0.7); #Lymphocytes 0.9 thou/uL (1.20-3.40); #Monocytes 0.9 thou/uL (0.11-0.59); #Neutrophils 6.5 thou/uL (1.40-6.50); %Basophils 0.1 % (0.0-1.0); %Eosinophils 5.1 % (0.0-10.0); %Lymphocytes 10.3 % (21.0-51.0); %Monocytes 10.6 % (0.0-10.0); %Neutrophils 73.9 % (42.0-75.0); Hemoglobin 8.5 g/dL (14.0-18.0); Mean Corpuscular HGB CONC 33.7 g/dL (32.0-36.0); Mean Corpuscular Hemoglobin 33.7 pg (27.0-31.0); Mean Platelet Volume 8.3 fL (7.4-10.4); Platelet Count 115 thou/uL (130-400); RBC Distribution Width 15.2 % (11.5-14.5); Red Blood Cell (RBC) Count 2.51 mill/uL (4.70-6.10); White Blood Cell (WBC) Count 8.8 thou/uL (4.8-10.8)
[2019-10-21 04:53] LABS: ALT (SGPT) 204 U/L (8-55); AST (SGOT) 138 U/L (5-34); Albumin 3.7 g/dL (3.4-4.8); Alkaline Phosphatase 83 U/L (40-110); Anion Gap 13 mmol/L (10-20); BUN (Urea Nitrogen) 24 mg/dL (8.4-25.7); Bilirubin, Total 2.2 mg/dL (0.2-1.2); Calc. Creatinine Clearance 54 mL/min (70-130); Calcium 8.8 mg/dL (7.8-10.44); Carbon Dioxide 30 mmol/L (23-31); Chloride 101 mmol/L (98-107); Estimated GFR-MDRD 63; Globulin 2.7 g/dL (2.4-3.5); Glucose 85 mg/dL (80-115); Potassium 3.4 mmol/L (3.5-5.1); Protein, Total 6.4 g/dL (5.8-8.1); Sodium 141 mmol/L (136-145)
[2019-10-21] MEDS: Amoxicillin/Potassium Clav 500 MG TAB PO SCH ×2 (09:15→21:41)
[2019-10-21] MEDS: Famotidine 20 MG TAB PO SCH (09:15)
[2019-10-21] MEDS: guaiFENesin ER 600 MG TAB PO SCH ×2 (09:15→21:40)
[2019-10-21] MEDS: Furosemide 40 MG/4 ML VIAL SLOW IVP SCH (09:16)
[2019-10-21] MEDS ORDERED: Carvedilol 3.125 MG TAB PO SCH (10:15)
--- NOTE | 2019-10-21 10:24 | PRG ---
DATE OF SERVICE: 10/21/2019 OBJECTIVE: VITAL SIGNS: Temperature , pulse 103, respiratory rate 18, saturation 95% on 2 L, blood pressure 119/81. GENERAL: Denies pain or difficulty breathing. CHEST: No wheezing or crackles. CARDIAC: Normal S1, S2. No gallops. ABDOMEN: Soft. IMPRESSION: Respiratory failure, improved secondary to congestive heart failure, questionable pneumonia, but most of it is cardiac in origin. PLAN: Disposition per primary care physician. Agree with oral antibiotics. Home any time. Pulmonary will follow at a distance. Job ID: [id number]
[2019-10-21] MEDS: Acetaminophen 325 MG TAB PO PRN (10:29)
[2019-10-21 13:19] VITALS: BMI 18.3
[2019-10-21] MEDS: Lidocaine 5% Patch TD SCH (15:51)
[2019-10-21] MEDS: Carvedilol 3.125 MG TAB PO SCH (18:01)
--- NOTE | 2019-10-21 18:53 | PDOC.HOSPP ---
- Subjective Encounter Date: 10/21/19 Subjective: Feeling better. Has diuresed well. No new complaints or concerns. - Objective Vital Signs & Weight: Vital Signs (12 hours) Temp Pulse Resp BP Pulse Ox 10/21/19 15:58 98.1 F 100 16 111/70 96 10/21/19 12:10 98.7 F 106 H 18 121/80 96 10/21/19 09:10 98.0 F 103 H 18 119/81 94 L Weight Admit Weight 119 lb 7.849 oz Weight 120 lb 9.6 oz Most Recent Monitor Data Heart Rate from ECG 88 NIBP 108/69 NIBP BP-Mean 82 Respiration from ECG 16 SpO2 100 I&O: 10/20/19 10/21/19 10/22/19 06:59 06:59 06:59 Intake Total 1820 1600 720 Output Total 4465 3390 975 [facility]805 -1790 -255 Result Diagrams: 10/21/19 04:20 10/21/19 04:20 Hospitalist ROS - Medication Medications: Active Medications Generic Name Dose Route Start Last Admin Trade Name Freq PRN Reason Stop Dose Admin Acetaminophen 650 mg 10/20/19 14:00 10/21/19 10:29 Tylenol PO 650 mg Q6H PRN Administration Headache/Fever or MILD Pain Amoxicillin/Clavulanate Potassium 500 mg 10/20/19 09:00 10/21/19 09:15 Augmentin PO 10/25/19 09:01 500 mg Q12HR THO Administration Carvedilol 3.125 mg 10/21/19 17:00 10/21/19 18:01 Coreg PO 3.125 mg BID-WM THO Administration Famotidine 20 mg 10/20/19 09:00 10/21/19 09:15 Pepcid PO 20 mg DAILY THO Administration Guaifenesin 1,200 mg 10/18/19 21:00 10/21/19 09:15 Mucinex PO 1,200 mg Q12HR THO Administration Lidocaine 1 patch 10/16/19 15:00 10/21/19 15:51 Lidoderm 5% Patch TD 1 patch 1500 THO Administration Melatonin 3 mg 10/18/19 20:13 10/18/19 20:51 Melatonin PO 3 mg HS PRN Administration Insomnia Miscellaneous Medication 1 each 10/17/19 03:00 04/09/20 03:01 Lidocaine Patch Removal TOP Not Given 0300 [facility] Ondansetron HCl 4 mg 10/15/19 16:59 10/18/19 12:03 Zofran IVP 4 mg Q6H PRN Administration Nausea/Vomiting - Exam General Appearance: NAD, awake alert General - other findings: cachectic Heart: RRR, no murmur, no gallops, no rubs, normal peripheral pulses Respiratory: no wheezes, no rales Gastrointestinal: soft, non-tender, non-distended, normal bowel sounds, no palpable masses, no hepatomegaly, no splenomegaly, no bruit Extremities: no cyanosis, no clubbing Extremities - other findings: Improved dependent edema of UE's. Musculoskeletal: normal tone Psychiatric: normal affect, normal behavior, A&O x 3 Hosp A/P (1) Cardiac arrest Code(s): I46.9 - CARDIAC ARREST, CAUSE UNSPECIFIED Status: Acute (2) Successful cardiopulmonary resuscitation Code(s): Z92.89 - PERSONAL HISTORY OF OTHER MEDICAL TREATMENT Status: Acute (3) Cardiomyopathy Code(s): I42.9 - CARDIOMYOPATHY, UNSPECIFIED Status: Acute (4) Acute on chronic systolic and diastolic heart failure, NYHA class 4 Code(s): I50.43 - ACUTE ON CHRONIC COMBINED SYSTOLIC AND DIASTOLIC HRT FAIL Status: Acute (5) Cardiogenic shock Code(s): R57.0 - CARDIOGENIC SHOCK Status: Acute (6) Shock liver Code(s): K72.00 - ACUTE AND SUBACUTE HEPATIC FAILURE WITHOUT COMA Status: Acute (7) Pulmonary contusion Code(s): S27.329A - CONTUSION OF LUNG, UNSPECIFIED, INITIAL ENCOUNTER Status: Acute (8) Hyponatremia Code(s): E87.1 - HYPO-OSMOLALITY AND HYPONATREMIA Status: Acute (9) Anemia Code(s): D64.9 - ANEMIA, UNSPECIFIED Status: Acute (10) Leukocytosis Code(s): D72.829 - ELEVATED WHITE BLOOD CELL COUNT, UNSPECIFIED Status: Acute (11) Hemoptysis Code(s): R04.2 - HEMOPTYSIS Status: Acute (12) Protein-calorie malnutrition, moderate Code(s): E44.0 - MODERATE PROTEIN-CALORIE MALNUTRITION Status: Acute (13) Physical debility Code(s): R53.81 - OTHER MALAISE Status: Acute - Plan Cardiac arrest with successful resuscitation: Cardiogenic shock resolved. Defib printout will be reviewed. Ischemic cardiomyopathy: EF 10-15%. Defibrillator in place. Acute on chronic systolic heart failure: Had large volume resuscitation. Now has some overload. Diuresing as his BP tolerates. Added albumin to assist with BP and diuresis. Appears to have helped. Diuresed well without it. Cards consult appreciated. Opted for conservative management and therefore, no dobutamine or milrinone. BP slightly better. Will add back the low dose coreg. Hold daily Lasix and make a decision on that daily. Pulm contusion from CPR: Mild hemptysis. Slightly improved. Chronic hyponatremia: From CHF. Stable. Shock Liver: LFT's improving. Recheck the levels in am. Pneumonia: Difficult assessment. Chronic findings, chf contributing to CXR findings. Pulm following De-escalating abx. Generalized debility: PT consult. Need to determine appropriate disposition at [facility]. Discussed with CM who discussed with managed care.
[2019-10-22] MEDS: Lidocaine Patch Removal 1 EACH TOP SCH (05:13)
[2019-10-22 05:52] LABS: Hemoglobin 8.9 g/dL (14.0-18.0); Mean Corpuscular HGB CONC 32.8 g/dL (32.0-36.0); Mean Corpuscular Hemoglobin 33.8 pg (27.0-31.0); RBC Distribution Width 16.6 % (11.5-14.5); Red Blood Cell (RBC) Count 2.62 mill/uL (4.70-6.10)
[2019-10-22 05:59] LABS: ALT (SGPT) 179 U/L (8-55); AST (SGOT) 98 U/L (5-34); Albumin 3.4 g/dL (3.4-4.8); Alkaline Phosphatase 80 U/L (40-110); Anion Gap 9 mmol/L (10-20); BUN (Urea Nitrogen) 28 mg/dL (8.4-25.7); Bilirubin, Total 1.7 mg/dL (0.2-1.2); Calc. Creatinine Clearance 53 mL/min (70-130); Calcium 9.1 mg/dL (7.8-10.44); Carbon Dioxide 34 mmol/L (23-31); Chloride 99 mmol/L (98-107); Estimated GFR-MDRD 67; Globulin 2.9 g/dL (2.4-3.5); Glucose 114 mg/dL (80-115); Protein, Total 6.3 g/dL (5.8-8.1); Sodium 138 mmol/L (136-145)
[2019-10-22 06:39] LABS: Band 20 % (5-11); Eosinophils 6 % (0-10); Lymphocytes 8 % (21-51); MDiff Complete? YES; Mean Platelet Volume 8.3 fL (7.4-10.4); Monocytes 12 % (0-10); Neutrophil 53 % (42-75); Nucleated RBC 3 % (0); Platelet Count 167 thou/uL (130-400); White Blood Cell (WBC) Count 7.9 thou/uL (4.8-10.8)
[2019-10-22] MEDS ORDERED: Sodium Chloride 0.9% 10 ML ONE (08:42)
[2019-10-22] MEDS ORDERED: Furosemide 40 MG TAB PO SCH ×2 (09:30→12:45)
[2019-10-22] MEDS ORDERED: Lisinopril 2.5 MG TAB PO SCH (09:30)
[2019-10-22] MEDS: Carvedilol 3.125 MG TAB PO SCH ×2 (09:32→17:29)
[2019-10-22] MEDS: guaiFENesin ER 600 MG TAB PO SCH ×2 (09:32→21:19)
[2019-10-22] MEDS: Amoxicillin/Potassium Clav 500 MG TAB PO SCH ×2 (09:32→21:18)
[2019-10-22] MEDS: Famotidine 20 MG TAB PO SCH (09:32)
--- NOTE | 2019-10-22 13:22 | PDOC.HOSPP ---
- Subjective Encounter Date: 10/22/19 Subjective: Says he still feels sob with any ambulation or even with talking. No other complaints. - Objective Vital Signs & Weight: Vital Signs (12 hours) Temp Pulse Pulse Pulse Resp BP BP 10/22/19 11:43 97.2 F L 93 20 10/22/19 10:26 94 94 126/76 10/22/19 10:24 94 118/83 10/22/19 08:00 97.6 F 94 20 10/22/19 05:16 10/22/19 03:37 97.2 F L 92 14 BP BP Pulse Ox Pulse Ox 10/22/19 11:43 120/80 98 10/22/19 10:26 128/83 96 10/22/19 10:24 10/22/19 08:00 125/82 98 10/22/19 05:16 95 10/22/19 03:37 110/77 95 Weight Admit Weight 119 lb 7.849 oz Weight 113 lb 14.4 oz Most Recent Monitor Data Heart Rate from ECG 88 NIBP 108/69 NIBP BP-Mean 82 Respiration from ECG 16 SpO2 100 I&O: 10/21/19 10/22/19 10/23/19 06:59 06:59 06:59 Intake Total 1600 1170 Output Total 3390 1075 Balance -1790 95 Result Diagrams: 10/22/19 05:20 10/22/19 05:20 Hospitalist ROS - Medication Medications: Active Medications Generic Name Dose Route Start Last Admin Trade Name Freq PRN Reason Stop Dose Admin Acetaminophen 650 mg 10/20/19 14:00 10/21/19 10:29 Tylenol PO 650 mg Q6H PRN Administration Headache/Fever or MILD Pain Amoxicillin/Clavulanate Potassium 500 mg 10/20/19 09:00 10/22/19 09:32 Augmentin PO 10/25/19 09:01 500 mg Q12HR THO Administration Carvedilol 3.125 mg 10/21/19 17:00 10/22/19 09:32 Coreg PO 3.125 mg BID-WM THO Administration Famotidine 20 mg 10/20/19 09:00 10/22/19 09:32 Pepcid PO 20 mg DAILY THO Administration Furosemide 40 mg 10/22/19 12:45 10/22/19 13:10 Lasix PO 10/22/19 14:45 40 mg NOW THO Administration Guaifenesin 1,200 mg 10/18/19 21:00 10/22/19 09:32 Mucinex PO 1,200 mg Q12HR THO Administration Lidocaine 1 patch 10/16/19 15:00 10/21/19 15:51 Lidoderm 5% Patch TD 1 patch 1500 THO Administration Melatonin 3 mg 10/18/19 20:13 10/18/19 20:51 Melatonin PO 3 mg HS PRN Administration Insomnia Miscellaneous Medication 1 each 10/17/19 03:00 10/22/19 05:13 Lidocaine Patch Removal TOP 1 each 0300 THO Administration Ondansetron HCl 4 mg 10/15/19 16:59 10/18/19 12:03 Zofran IVP 4 mg Q6H PRN Administration Nausea/Vomiting - Exam General Appearance: NAD, awake alert General - other findings: cachetic Heart: RRR, no murmur, no gallops, no rubs, normal peripheral pulses Respiratory: CTAB, no wheezes, no rales, no ronchi, normal chest expansion, no tachypnea, normal percussion Gastrointestinal: soft, non-tender, non-distended, normal bowel sounds, no palpable masses, no hepatomegaly, no splenomegaly, no bruit Extremities: no cyanosis, no clubbing Extremities - other findings: Depedent edema of UE's. Improving. Musculoskeletal: normal tone Psychiatric: normal affect, normal behavior, A&O x 3 Hosp A/P (1) Cardiac arrest Code(s): I46.9 - CARDIAC ARREST, CAUSE UNSPECIFIED Status: Acute (2) Successful cardiopulmonary resuscitation Code(s): Z92.89 - PERSONAL HISTORY OF OTHER MEDICAL TREATMENT Status: Acute (3) Cardiomyopathy Code(s): I42.9 - CARDIOMYOPATHY, UNSPECIFIED Status: Acute (4) Acute on chronic systolic and diastolic heart failure, NYHA class 4 Code(s): I50.43 - ACUTE ON CHRONIC COMBINED SYSTOLIC AND DIASTOLIC HRT FAIL Status: Acute (5) Cardiogenic shock Code(s): R57.0 - CARDIOGENIC SHOCK Status: Acute (6) Shock liver Code(s): K72.00 - ACUTE AND SUBACUTE HEPATIC FAILURE WITHOUT COMA Status: Acute (7) Pulmonary contusion Code(s): S27.329A - CONTUSION OF LUNG, UNSPECIFIED, INITIAL ENCOUNTER Status: Acute (8) Hyponatremia Code(s): E87.1 - HYPO-OSMOLALITY AND HYPONATREMIA Status: Acute (9) Anemia Code(s): D64.9 - ANEMIA, UNSPECIFIED Status: Acute (10) Leukocytosis Code(s): D72.829 - ELEVATED WHITE BLOOD CELL COUNT, UNSPECIFIED Status: Acute (11) Hemoptysis Code(s): R04.2 - HEMOPTYSIS Status: Acute (12) Protein-calorie malnutrition, moderate Code(s): E44.0 - MODERATE PROTEIN-CALORIE MALNUTRITION Status: Acute (13) Physical debility Code(s): R53.81 - OTHER MALAISE Status: Acute (14) Acute respiratory failure with hypoxia Code(s): J96.01 - ACUTE RESPIRATORY FAILURE WITH HYPOXIA Status: Acute - Plan Cardiac arrest with successful resuscitation: Cardiogenic shock resolved. Defib printout will be reviewed. Ischemic cardiomyopathy: EF 10-15%. Defibrillator in place. Acute on chronic systolic heart failure: Had large volume resuscitation. Now has some overload. Diuresing as his BP tolerates. Added albumin to assist with BP and diuresis. Appears to have helped. Diuresed well without it. Cards consult appreciated. Opted for conservative management and therefore, no dobutamine or milrinone. BP slightly better. Will add back the low dose coreg. Hold daily Lasix and make a decision on that daily. Will give an oral dose today and start daily po tomorrow. Pulm contusion from CPR: Mild hemptysis. Slightly improved. Chronic hyponatremia: From CHF. Stable. Shock Liver: LFT's improving. Recheck the levels in am. Pneumonia: Difficult assessment. Chronic findings, chf contributing to CXR findings. Pulm following De-escalating abx. Generalized debility: PT consult. Need to determine appropriate disposition at [facility]. Discussed with CM who discussed with managed care. Respiratory failure: Will check room air sats with and without ambulation. Continue NC O2 til then.
[2019-10-22] MEDS: Lidocaine 5% Patch TD SCH (14:56)
[2019-10-23] MEDS: Lidocaine Patch Removal 1 EACH TOP SCH (05:16)
[2019-10-23] MEDS: Furosemide 40 MG TAB PO SCH (07:24)
[2019-10-23] MEDS: Carvedilol 3.125 MG TAB PO SCH ×2 (07:24→16:30)
[2019-10-23] MEDS: Acetaminophen 325 MG TAB PO PRN ×2 (07:25→21:35)
[2019-10-23 07:31] LABS: ALT (SGPT) 135 U/L (8-55); AST (SGOT) 55 U/L (5-34); Albumin 3.4 g/dL (3.4-4.8); Alkaline Phosphatase 87 U/L (40-110); Anion Gap 14 mmol/L (10-20); BUN (Urea Nitrogen) 31 mg/dL (8.4-25.7); Bilirubin, Total 1.4 mg/dL (0.2-1.2); Calc. Creatinine Clearance 51 mL/min (70-130); Calcium 9.3 mg/dL (7.8-10.44); Carbon Dioxide 31 mmol/L (23-31); Chloride 98 mmol/L (98-107); Estimated GFR-MDRD 71; Globulin 2.9 g/dL (2.4-3.5); Glucose 122 mg/dL (80-115); Protein, Total 6.3 g/dL (5.8-8.1); Sodium 139 mmol/L (136-145)
[2019-10-23 07:42] LABS: #Eosinphils 0.4 thou/uL (0.0-0.7); #Lymphocytes 0.7 thou/uL (1.20-3.40); #Neutrophils 7.1 thou/uL (1.40-6.50); %Eosinophils 4.9 % (0.0-10.0); %Lymphocytes 7.4 % (21.0-51.0); %Monocytes 10.9 % (0.0-10.0); %Neutrophils 76.9 % (42.0-75.0); Hemoglobin 9.6 g/dL (14.0-18.0); MDiff Complete? YES; Macrocytosis SLIGHT = 6-15 cells (100X) (0-5/hpf); Mean Corpuscular HGB CONC 33.2 g/dL (32.0-36.0); Mean Corpuscular Hemoglobin 34.9 pg (27.0-31.0); Mean Platelet Volume 8.1 fL (7.4-10.4); Platelet Count 244 thou/uL (130-400); RBC Distribution Width 18.4 % (11.5-14.5); Red Blood Cell (RBC) Count 2.76 mill/uL (4.70-6.10); White Blood Cell (WBC) Count 9.2 thou/uL (4.8-10.8)
[2019-10-23] MEDS: guaiFENesin ER 600 MG TAB PO SCH ×2 (08:55→21:27)
[2019-10-23] MEDS: Famotidine 20 MG TAB PO SCH (08:55)
[2019-10-23] MEDS: Amoxicillin/Potassium Clav 500 MG TAB PO SCH ×2 (08:56→21:27)
[2019-10-23] MEDS: Lisinopril 2.5 MG TAB PO SCH (08:56)
[2019-10-23] MEDS: Lidocaine 5% Patch TD SCH (16:30)
[2019-10-24] MEDS: Lidocaine Patch Removal 1 EACH TOP SCH (05:15)
[2019-10-24 05:54] LABS: ALT (SGPT) 100 U/L (8-55); AST (SGOT) 36 U/L (5-34); Albumin 3.2 g/dL (3.4-4.8); Alkaline Phosphatase 86 U/L (40-110); Anion Gap 12 mmol/L (10-20); BUN (Urea Nitrogen) 34 mg/dL (8.4-25.7); Bilirubin, Total 1.2 mg/dL (0.2-1.2); Calc. Creatinine Clearance 56 mL/min (70-130); Calcium 8.9 mg/dL (7.8-10.44); Carbon Dioxide 33 mmol/L (23-31); Chloride 97 mmol/L (98-107); Estimated GFR-MDRD 78; Globulin 2.9 g/dL (2.4-3.5); Glucose 99 mg/dL (80-115); Protein, Total 6.1 g/dL (5.8-8.1); Sodium 138 mmol/L (136-145)
[2019-10-24 06:29] LABS: Hemoglobin 9.3 g/dL (14.0-18.0); Mean Corpuscular Hemoglobin 34.7 pg (27.0-31.0); RBC Distribution Width 18.3 % (11.5-14.5); Red Blood Cell (RBC) Count 2.67 mill/uL (4.70-6.10)
[2019-10-24 08:12] LABS: #Eosinphils 0.5 thou/uL (0.0-0.7); #Lymphocytes 0.7 thou/uL (1.20-3.40); #Neutrophils 7.1 thou/uL (1.40-6.50); %Basophils 0.1 % (0.0-1.0); %Eosinophils 5.1 % (0.0-10.0); %Lymphocytes 7.6 % (21.0-51.0); %Monocytes 10.5 % (0.0-10.0); %Neutrophils 76.7 % (42.0-75.0); MDiff Complete? YES; Macrocytosis SLIGHT = 6-15 cells (100X) (0-5/hpf); Mean Platelet Volume 7.5 fL (7.4-10.4); Platelet Count 316 thou/uL (130-400); White Blood Cell (WBC) Count 9.3 thou/uL (4.8-10.8)
[2019-10-24] MEDS: Lisinopril 2.5 MG TAB PO SCH (10:07)
[2019-10-24] MEDS: Furosemide 40 MG TAB PO SCH (10:07)
[2019-10-24] MEDS: Carvedilol 3.125 MG TAB PO SCH ×2 (10:07→16:27)
[2019-10-24] MEDS: Famotidine 20 MG TAB PO SCH (10:08)
[2019-10-24] MEDS: Amoxicillin/Potassium Clav 500 MG TAB PO SCH (10:08)
[2019-10-24] MEDS: guaiFENesin ER 600 MG TAB PO SCH ×2 (10:09→20:52)
--- NOTE | 2019-10-24 14:21 | PDOC.HOSPP ---
- Subjective Encounter Date: 10/24/19 Subjective: Doing ok. Still feels the need to cough. - Objective Vital Signs & Weight: Vital Signs (12 hours) Temp Pulse Resp BP BP Pulse Ox 10/24/19 10:07 89 114/70 10/24/19 08:15 98.1 F 89 20 114/70 97 10/24/19 03:17 97.5 F L 91 18 109/65 93 L Weight Admit Weight 119 lb 7.849 oz Weight 115 lb Most Recent Monitor Data Heart Rate from ECG 88 NIBP 108/69 NIBP BP-Mean 82 Respiration from ECG 16 SpO2 100 I&O: 10/23/19 10/24/19 10/25/19 06:59 06:59 06:59 Intake Total 1220 2530 Output Total 750 1850 Balance 470 680 Result Diagrams: 10/24/19 05:05 10/24/19 05:05 Hospitalist ROS - Medication Medications: Active Medications Generic Name Dose Route Start Last Admin Trade Name Freq PRN Reason Stop Dose Admin Acetaminophen 650 mg 10/20/19 14:00 10/23/19 21:35 Tylenol PO 650 mg Q6H PRN Administration Headache/Fever or MILD Pain Amoxicillin/Clavulanate Potassium 500 mg 10/20/19 09:00 10/24/19 10:08 Augmentin PO 10/25/19 09:01 500 mg Q12HR THO Administration Carvedilol 3.125 mg 10/21/19 17:00 10/24/19 10:07 Coreg PO 3.125 mg BID-WM THO Administration Famotidine 20 mg 10/20/19 09:00 10/24/19 10:08 Pepcid PO 20 mg DAILY THO Administration Furosemide 40 mg 10/23/19 07:30 10/24/19 10:07 Lasix PO 40 mg DAILY-AC TOH Administration Guaifenesin 1,200 mg 10/18/19 21:00 10/24/19 10:09 Mucinex PO 1,200 mg Q12HR THO Administration Lidocaine 1 patch 10/16/19 15:00 10/23/19 16:30 Lidoderm 5% Patch TD 1 patch 1500 THO Administration Lisinopril 2.5 mg 10/23/19 09:00 10/24/19 10:07 Zestril PO 2.5 mg DAILY THO Administration Melatonin 3 mg 10/18/19 20:13 10/18/19 20:51 Melatonin PO 3 mg HS PRN Administration Insomnia Miscellaneous Medication 1 each 10/17/19 03:00 10/24/19 05:15 Lidocaine Patch Removal TOP 1 each 0300 THO Administration Ondansetron HCl 4 mg 10/15/19 16:59 10/18/19 12:03 Zofran IVP 4 mg Q6H PRN Administration Nausea/Vomiting - Exam General Appearance: NAD, awake alert General - other findings: cachectic Heart: RRR, no murmur, no gallops, no rubs, normal peripheral pulses Respiratory: CTAB, no wheezes, no rales, no ronchi, normal chest expansion, no tachypnea, normal percussion Gastrointestinal: soft, non-tender, non-distended, normal bowel sounds, no palpable masses, no hepatomegaly, no splenomegaly, no bruit Extremities: no cyanosis, no clubbing, no edema Psychiatric: normal affect, normal behavior, A&O x 3 Hosp A/P (1) Cardiac arrest Code(s): I46.9 - CARDIAC ARREST, CAUSE UNSPECIFIED Status: Acute (2) Successful cardiopulmonary resuscitation Code(s): Z92.89 - PERSONAL HISTORY OF OTHER MEDICAL TREATMENT Status: Acute (3) Cardiomyopathy Code(s): I42.9 - CARDIOMYOPATHY, UNSPECIFIED Status: Acute (4) Acute on chronic systolic and diastolic heart failure, NYHA class 4 Code(s): I50.43 - ACUTE ON CHRONIC COMBINED SYSTOLIC AND DIASTOLIC HRT FAIL Status: Acute (5) Cardiogenic shock Code(s): R57.0 - CARDIOGENIC SHOCK Status: Acute (6) Shock liver Code(s): K72.00 - ACUTE AND SUBACUTE HEPATIC FAILURE WITHOUT COMA Status: Acute (7) Pulmonary contusion Code(s): S27.329A - CONTUSION OF LUNG, UNSPECIFIED, INITIAL ENCOUNTER Status: Acute (8) Hyponatremia Code(s): E87.1 - HYPO-OSMOLALITY AND HYPONATREMIA Status: Acute (9) Anemia Code(s): D64.9 - ANEMIA, UNSPECIFIED Status: Acute (10) Leukocytosis Code(s): D72.829 - ELEVATED WHITE BLOOD CELL COUNT, UNSPECIFIED Status: Acute (11) Hemoptysis Code(s): R04.2 - HEMOPTYSIS Status: Acute (12) Protein-calorie malnutrition, moderate Code(s): E44.0 - MODERATE PROTEIN-CALORIE MALNUTRITION Status: Acute (13) Physical debility Code(s): R53.81 - OTHER MALAISE Status: Acute (14) Acute respiratory failure with hypoxia Code(s): J96.01 - ACUTE RESPIRATORY FAILURE WITH HYPOXIA Status: Acute - Plan Cardiac arrest with successful resuscitation: Cardiogenic shock resolved. Ischemic cardiomyopathy: EF 10-15%. Defibrillator in place. Acute on chronic systolic heart failure: Had large volume resuscitation. Improved with diuresis. Diuresing as his BP tolerates. Cards consult appreciated. Opted for conservative management and therefore, no dobutamine or milrinone. Daily po lasix. Record indicates he took in over 2 liters yesterday. Fluid restrict to 1,000 cc/ day. Now back on Coreg and ACEI. Pulm contusion from CPR: Mild hemptysis. Slightly improved. Chronic hyponatremia: From CHF. Stable. Shock Liver: LFT's much impoved. Pneumonia: Difficult assessment. Chronic findings, chf contributing to CXR findings. DC abx. Generalized debility: PT consult. Respiratory failure: Has been on room air. Occ with low level NC.
[2019-10-24] MEDS: Lidocaine 5% Patch TD SCH (16:26)
[2019-10-24] MEDS: Acetaminophen 325 MG TAB PO PRN (16:33)
[2019-10-25] MEDS: Lidocaine Patch Removal 1 EACH TOP SCH (04:13)
[2019-10-25] MEDS: Carvedilol 3.125 MG TAB PO SCH (09:10)
[2019-10-25] MEDS: Lisinopril 2.5 MG TAB PO SCH ×2 (09:11→12:31)
[2019-10-25] MEDS: guaiFENesin ER 600 MG TAB PO SCH (09:11)
[2019-10-25] MEDS: Furosemide 40 MG TAB PO SCH (09:11)
[2019-10-25] MEDS: Famotidine 20 MG TAB PO SCH (09:12)
[2019-10-25] MEDS: Acetaminophen 325 MG TAB PO PRN (09:15)
--- NOTE | 2019-10-25 15:09 | PDOC.HOSPP ---
- Subjective Encounter Date: 10/25/19 Subjective: Doing well. Ambulated without difficulty. No oxygen. - Objective Vital Signs & Weight: Vital Signs (12 hours) Temp Pulse Resp BP BP Pulse Ox 10/25/19 12:31 84 106/64 10/25/19 12:00 97.8 F 84 20 106/64 97 10/25/19 08:00 95 10/25/19 07:55 98.0 F 89 18 97/58 L 95 10/25/19 03:18 97.6 F 87 17 90/53 L 95 Weight Admit Weight 119 lb 7.849 oz Weight 110 lb 8 oz Most Recent Monitor Data Heart Rate from ECG 88 NIBP 108/69 NIBP BP-Mean 82 Respiration from ECG 16 SpO2 100 I&O: 10/24/19 10/25/19 10/26/19 06:59 06:59 06:59 Intake Total 3010 480 480 Output Total 2500 1500 650 Balance 510 -1020 -170 Result Diagrams: 10/24/19 05:05 10/24/19 05:05 Hospitalist ROS - Medication Medications: Active Medications Generic Name Dose Route Start Last Admin Trade Name Freq PRN Reason Stop Dose Admin Acetaminophen 650 mg 10/20/19 14:00 10/25/19 09:15 Tylenol PO 650 mg Q6H PRN Administration Headache/Fever or MILD Pain Carvedilol 6.25 mg 10/24/19 17:00 10/25/19 09:10 Coreg PO 6.25 mg BID-WM THO Administration Famotidine 20 mg 10/20/19 09:00 10/25/19 09:12 Pepcid PO 20 mg DAILY THO Administration Furosemide 40 mg 10/23/19 07:30 10/25/19 09:11 Lasix PO 40 mg DAILY-AC THO Administration Guaifenesin 1,200 mg 10/18/19 21:00 10/25/19 09:11 Mucinex PO 1,200 mg Q12HR THO Administration Lidocaine 1 patch 10/16/19 15:00 10/24/19 16:26 Lidoderm 5% Patch TD 1 patch 1500 THO Administration Lisinopril 2.5 mg 10/23/19 09:00 10/25/19 12:31 Zestril PO 2.5 mg DAILY THO Administration Melatonin 3 mg 10/18/19 20:13 10/18/19 20:51 Melatonin PO 3 mg HS PRN Administration Insomnia Miscellaneous Medication 1 each 10/17/19 03:00 10/25/19 04:13 Lidocaine Patch Removal TOP Not Given 0300 THO Ondansetron HCl 4 mg 10/15/19 16:59 10/18/19 12:03 Zofran IVP 4 mg Q6H PRN Administration Nausea/Vomiting - Exam General Appearance: NAD, awake alert Heart: RRR, no murmur, no gallops, no rubs, normal peripheral pulses Respiratory: CTAB, no wheezes, no rales, no ronchi, normal chest expansion, no tachypnea, normal percussion Gastrointestinal: soft, non-tender, non-distended, normal bowel sounds, no palpable masses, no hepatomegaly, no splenomegaly, no bruit Extremities: no cyanosis, no clubbing Extremities - other findings: Dependent edema at elbows. Ecchymosis RUE - old. Skin: normal turgor Psychiatric: normal affect, normal behavior, A&O x 3 Hosp A/P (1) Cardiac arrest Code(s): I46.9 - CARDIAC ARREST, CAUSE UNSPECIFIED Status: Acute (2) Successful cardiopulmonary resuscitation Code(s): Z92.89 - PERSONAL HISTORY OF OTHER MEDICAL TREATMENT Status: Acute (3) Cardiomyopathy Code(s): I42.9 - CARDIOMYOPATHY, UNSPECIFIED Status: Acute (4) Acute on chronic systolic and diastolic heart failure, NYHA class 4 Code(s): I50.43 - ACUTE ON CHRONIC COMBINED SYSTOLIC AND DIASTOLIC HRT FAIL Status: Acute (5) Cardiogenic shock Code(s): R57.0 - CARDIOGENIC SHOCK Status: Acute (6) Shock liver Code(s): K72.00 - ACUTE AND SUBACUTE HEPATIC FAILURE WITHOUT COMA Status: Acute (7) Pulmonary contusion Code(s): S27.329A - CONTUSION OF LUNG, UNSPECIFIED, INITIAL ENCOUNTER Status: Acute (8) Hyponatremia Code(s): E87.1 - HYPO-OSMOLALITY AND HYPONATREMIA Status: Acute (9) Anemia Code(s): D64.9 - ANEMIA, UNSPECIFIED Status: Acute (10) Leukocytosis Code(s): D72.829 - ELEVATED WHITE BLOOD CELL COUNT, UNSPECIFIED Status: Acute (11) Hemoptysis Code(s): R04.2 - HEMOPTYSIS Status: Acute (12) Protein-calorie malnutrition, moderate Code(s): E44.0 - MODERATE PROTEIN-CALORIE MALNUTRITION Status: Acute (13) Physical debility Code(s): R53.81 - OTHER MALAISE Status: Acute (14) Acute respiratory failure with hypoxia Code(s): J96.01 - ACUTE RESPIRATORY FAILURE WITH HYPOXIA Status: Acute - Plan Cardiac arrest with successful resuscitation: Cardiogenic shock resolved. Ischemic cardiomyopathy: EF 10-15%. Defibrillator in place. Acute on chronic systolic heart failure: Had large volume resuscitation. Improved with diuresis. Diuresing as his BP tolerates. Cards consult appreciated. Opted for conservative management and therefore, no dobutamine or milrinone. Daily po lasix. Fluid restrict to 1,000 cc/ day. Now back on Coreg and ACEI. Titrated as BP will allow. Pulm contusion from CPR: Mild hemptysis. Slightly improved. Chronic hyponatremia: From CHF. Stable. Shock Liver: LFT's much impoved. Pneumonia: Difficult assessment. Chronic findings, chf contributing to CXR findings. DC abx. Generalized debility: PT consult. Respiratory failure: Has been on room air. Occ with low level NC. Dispo: Discharged two days ago. Awaiting TDCJ placement. Should go back to unit.
[2019-10-25 16:17] VITALS: BP 107/73; TEMP 96.5
--- NOTE | 2019-10-26 06:44 | DIS ---
DATE OF ADMISSION: 10/15/2019 DATE OF DISCHARGE: 10/25/2019 DISCHARGE DIAGNOSES: 1. Cardiac arrest. 2. Acute on chronic systolic congestive heart failure. 3. Acute hypoxic respiratory failure. 4. Severe ischemic cardiomyopathy with an ejection fraction of 10% to 15%. 5. Chest wall hematoma secondary to CPR and administration of tPA. 6. Chest wall contusion secondary to CPR. 7. Cardiogenic shock. 8. Shock liver. 9. Pulmonary contusion with mild hemoptysis. 10. Hyponatremia. 11. Anemia. 12. Moderate protein calorie malnutrition. 13. Moderate to severe pulmonary hypertension. HISTORY OF PRESENT ILLNESS: This patient is a 64-year-old male with a history of severe ischemic cardiomyopathy with severely reduced ejection fraction. The patient apparently had been reporting some chest discomfort and shortness of breath at his [facility] unit for a couple of days. [facility]. He had borderline hypotension, was given nitroglycerin and had worsening hypotension, was subsequently brought by ambulance to the emergency department at the [facility]. There, the patient had further decompensation and went into full cardiac arrest requiring CPR. He did have return of spontaneous circulation after approximately 37 minutes of CPR. There was concern that he had a pulmonary embolus leading to this event and he did undergo tPA and subsequently developed a right chest wall hematoma. The patient was intubated in the CPR process and once stabilized, was transferred to this facility for further treatment. HOSPITAL COURSE: The patient was admitted to the ICU and was able to be extubated fairly promptly. He had a repeat echocardiogram here, which revealed an ejection fraction of 10% to 15% with [id number] MR and severe tricuspid regurgitation, moderately to severely elevated pulmonary artery pressure. The patient was seen by Cardiology and through their discussion apparently, the plan was for more conservative treatment based on the patient's wishes. The patient was doing well, but continuing to report soreness in his chest. He did have contusions and ecchymoses over the anterior chest wall related to the CPR and the tPA administration. He developed a very small amount of hemoptysis, which resolved spontaneously. He had some fluid overload likely at the time of presentation and likely due to additional resuscitation during his code and cardiogenic shock episode. This was subsequently diuresed carefully while his beta-kenneth and SAMY inhibitor were held due to his ongoing borderline hypotension. After a couple of days of diuresis, the patient's blood pressure actually responded positively and improved. We were able to get back on his beta kenneth and his SAMY inhibitor. Diuresis continued until we started to see a slight increase in his BUN. The patient was seen by Physical Therapy and was able to ambulate 48 feet with a rolling walker and minimal caregiver assist. This was discussed with Case Management and in turn discussed with [facility] Managed Care in order to help work out appropriate disposition for the patient as he no longer required inpatient admission. PHYSICAL EXAMINATION: VITAL SIGNS: On the day of discharge, temperature is 97.5, pulse 92, respirations 18, O2 saturation 94% to 95% on room air, and blood pressure 106/75 up to 120/72. GENERAL APPEARANCE: Age-appropriate male. He is in no distress. He is thin and somewhat cachectic in appearance. He is awake and alert, pleasant, and cooperative. HEART: Regular without murmurs, gallops, or rubs. LUNGS: Continue to have mild rales, worse at the left base, but moving air well. ABDOMEN: Soft, nontender, and nondistended. EXTREMITIES: There is no edema of the lower extremities. He has some persistent dependent edema around the elbows. DISPOSITION: The patient is discharged in stable condition. The ultimate disposition be it his primary unit or infirmary will be up to [facility] Managed Care being worked out with charge nurse and Case Management. DISCHARGE MEDICATIONS: 1. Potassium 10 mEq p.o. daily. 2. Lisinopril 2.5 mg daily. 3. Lasix 40 mg daily. 4. Coreg 3.125 mg one p.o. b.i.d. 5. Atorvastatin 40 mg daily. 6. Aspirin 81 mg p.o. daily. He will not have ongoing antibiotics as there was no persistent evidence of any infection. DISCHARGE INSTRUCTIONS: He will be on a heart healthy diet. His activity level is as tolerated. He will have followup care through [facility] and can return to the hospital at any time should he have the need to do so. Job ID: [id number]
--- NOTE | 2019-10-27 08:43 | PQF ---
DEBRA LEDEZMA DAVID R MD [id number] CLINICAL DOCUMENTATION CLARIFICATION FORM: POST DISCHARGE Addendum to original discharge summary date: ____ Late entry note date: __ DATE:10/27/2019 ATTN: Debra Oliva Please exercise your independent, professional judgment in responding to the clarification form. Clinical indicators are provided on the bottom of this form for your review In your clinical opinion based on clinical findings below, can you please identify the condition as reason for Inpatient admission if due to: Please check appropriate box(s): [ ] Acute CHF exacerbation [ ] Acute Respiratory Failure [ x ] Cardiac Arrest due to Ischemic Cardiomyopathy [ ] Pneumonia [ ] Other diagnosis For continuity of documentation, please document condition throughout progress notes and discharge summary. Thank You. CLINICAL INDICATORS - SIGNS / SYMPTOMS / LABS Laboratory 10/14 WBC 12.3, Neutrophils 87.5, Band 36, Lactic Acid 5.1 Blood Gas 10/14 pH 7.44, pCO2 34.2, pO2 322.6, O2 sat 99.7, O2 content 14.7 Chest x-day 10/14 Impression: Pulmonary edema H&P p1 10/14 Dr Sommers the pt presented with chest pain of 4 days duration, some shortness of breath H&P p1 4 Dr Sommers his lasix is not working as well as usual. He reports some left-sided swelling. He notes his normal blood pressure is in the mid 80s to low 90s systolic H&P p2 4/ Dr Sommers s/p cardiopulmonary arrest, on mechanical ventilation H&P p2 4/ Dr Sommers Pneumonia, pleural effusion Consult p3 10/14 s/p post cardiac arrest most likely due to underlying Cardiomyopathy, whether thi sis true ischemic Event note p1 10/16 Covid R/o and CHF exacerbation PN p1 10/20 Dr Ramos Respiratory failure improved secondary to Congestive heart failure RISK FACTORS H&P p1 10/14 - 64 year-old male H&P p1 10/14 - CAD H&P p1 10/14 -hx of lymphoma/leukemia H&P p1 10/14 - s/p AICD H&P p1 10/14 - Anemia H&P p3 10/14 - Lactic Acidosis TREATMENTS: Admitted to ICU SEP 14 IV Epinephrine 1mg Sep 14 - IV Vancomycin 1gm SEP 14 IV Zosyn 4.5 gm SEP 14 IVF NS 1L SEP 14 IV Lasix 40mg Respiratory Panel 10/14 Intubated on Mechanical Ventilator Chest X-ray 10/14 Pulmo consult 10/14 Gallito Chawla (This form is maintained as a part of the permanent medical record) 2014 [email or web address] All Rights Reserved [email or web address]
== END 2019-10-25 17:35 | DRG 302 ==
LOC: CCU 16:18 → 2NO 10-18 09:29
PROVIDERS: ADMIT Internal Medicine; ATTEND Internal Medicine
PROC: 5A1935Z Respiratory Ventilation, Less than 24 Consecutive Hours (ICD-10-PCS; principal; 2019-10-15)
PROC: 3E033XZ Introduction of Vasopressor into Peripheral Vein, Percutaneous Approach (ICD-10-PCS; 2019-10-15)
PROC: 8E0ZXY6 Isolation (ICD-10-PCS; 2019-10-15)
PROC: 30233N1 Transfusion of Nonautologous Red Blood Cells into Peripheral Vein, Percutaneous Approach (ICD-10-PCS; 2019-10-17)
PROC: 4B02XTZ Measurement of Cardiac Defibrillator, External Approach (ICD-10-PCS; 2019-10-18)
DX: I25.5 Ischemic cardiomyopathy (principal); I50.43 Acute on chronic combined systolic (congestive) and diastolic (congestive) heart failure; J96.01 Acute respiratory failure with hypoxia; R57.0 Cardiogenic shock; K72.00 Acute and subacute hepatic failure without coma; A41.9 Sepsis, unspecified organism; J18.9 Pneumonia, unspecified organism; I46.2 Cardiac arrest due to underlying cardiac condition; I13.0 Hypertensive heart and chronic kidney disease with heart failure and stage 1 through stage 4 chronic kidney disease, or unspecified chronic kidney disease; R04.2 Hemoptysis; E87.1 Hypo-osmolality and hyponatremia; E44.0 Moderate protein-calorie malnutrition; Z68.1 Body mass index [BMI] 19.9 or less, adult; E87.2 Acidosis; G93.1 Anoxic brain damage, not elsewhere classified; S27.321A Contusion of lung, unilateral, initial encounter; R64 Cachexia; Z20.828 Contact with and (suspected) exposure to other viral communicable diseases; I27.20 Pulmonary hypertension, unspecified; I25.10 Atherosclerotic heart disease of native coronary artery without angina pectoris; E03.9 Hypothyroidism, unspecified; K21.9 Gastro-esophageal reflux disease without esophagitis; N18.9 Chronic kidney disease, unspecified; D63.1 Anemia in chronic kidney disease; Y65.8 Other specified misadventures during surgical and medical care; T45.615A Adverse effect of thrombolytic drugs, initial encounter; S20.219A Contusion of unspecified front wall of thorax, initial encounter; I08.1 Rheumatic disorders of both mitral and tricuspid valves; S20.212A Contusion of left front wall of thorax, initial encounter; Z79.899 Other long term (current) drug therapy; Z79.82 Long term (current) use of aspirin; Z85.6 Personal history of leukemia; Z85.71 Personal history of Hodgkin lymphoma; Z92.21 Personal history of antineoplastic chemotherapy; Z92.3 Personal history of irradiation; Z95.810 Presence of automatic (implantable) cardiac defibrillator; Z92.82 Status post administration of tPA (rtPA) in a different facility within the last 24 hours prior to admission to current facility; Z78.1 Physical restraint status; I25.2 Old myocardial infarction; Z95.5 Presence of coronary angioplasty implant and graft
CPT/HCPCS: 36415; 36430; 71045; 80048; 80053; 80202; 82533; 82805; 83605; 83735; 84484; 85025; 86850; 86900; 86901; 87040; 93306; 93798; 94002; 94003; 94150; 94640; J0171; J1940; J2405; J2543; J3010; J3370; J3490; J7050; J7070; J7620; P9016; P9047

== ENCOUNTER 2021-11-09 18:33 | Inpatient (IN) | payer OTHER ==
[~2021-11-09 18:33] MED LIST: Iopamidol-370 76% 500 ML 1 ML ONE
[2021-11-09] MEDS ORDERED: manNITOL 20% 0 ML ONE (19:11)
[2021-11-09 19:13] LABS: #Lymphocytes 0.3 thou/uL (1.20-3.40); #Monocytes 0.9 thou/uL (0.11-0.59); #Neutrophils 10.5 thou/uL (1.40-6.50); %Eosinophils 0.1 % (0.0-10.0); %Lymphocytes 2.1 % (21.0-51.0); %Monocytes 7.5 % (0.0-10.0); %Neutrophils 90.3 % (42.0-75.0); Hemoglobin 9.4 g/dL (14.0-18.0); Mean Corpuscular HGB CONC 33.9 g/dL (32.0-36.0); Mean Corpuscular Hemoglobin 32.2 pg (27.0-31.0); Mean Corpuscular Volume 95.2 fL (78.0-98.0); Mean Platelet Volume 6.5 fL (7.4-10.4); Platelet Count 260 thou/uL (130-400); RBC Distribution Width 12.4 % (11.5-14.5); Red Blood Cell (RBC) Count 2.91 mill/uL (4.70-6.10); White Blood Cell (WBC) Count 11.6 thou/uL (4.8-10.8)
[2021-11-09] MEDS ORDERED: Mannitol 12.5 GM/50 ML ONE ×2 (19:13→19:27)
[2021-11-09] MEDS ORDERED: Neomycin-Polymyxin 1 ML AMP ONE (19:18)
[2021-11-09] MEDS ORDERED: Lidocaine 0.5%/Epinephrine 1:200,000 50 ml Vial ONE (19:18)
[2021-11-09] MEDS ORDERED: Thrombin 5000 UNITS/5 ML VIAL ONE (19:18)
[2021-11-09] MEDS ORDERED: Bacitracin Zinc Ointment 30 gm TUBE ONE (19:18)
[2021-11-09] MEDS ORDERED: Fentanyl 250 MCG/5 ML VIAL ONE (19:22)
[2021-11-09] MEDS ORDERED: Dexmedetomidine 200 MCG/2 ML VIAL ONE (19:22)
[2021-11-09] MEDS ORDERED: niCARdipine 25 MG/10 ML VIAL ONE ×2 (19:22→19:56)
[2021-11-09] MEDS ORDERED: Phenylephrine 10 MG/ML VIAL ONE (19:22)
[2021-11-09 19:25] LABS: INR-International Normal Ratio 1.1; Prothrombin Time 14.3 sec (12.0-14.7)
[2021-11-09 19:26] LABS: Actual Bicarbonate (HCO3a) 37.8 mEq/L (22-28); Analyzer IN Cardio ER; Base Excess (BEa) 17.5 mEq/L (-2.0 to +3.0); Calcium, Ionized (arterial) 0.96 mmol/L (1.12-1.30); Carboxyhemoglobin (COHb) 0.3 gm% (0.0-3.0); Hemoglobin (Hb) 10.4 g/dL (14.0-18.0); O2 Tension (PaO2), arterial 220.9 mmHg (> 80.0); Potassium - ABG Lab 1.88 mmol/L (3.70-5.30)
[2021-11-09 19:26] LABS: PTT 22.9 sec (22.9-36.1)
[2021-11-09 19:36] LABS: ALT (SGPT) 19 U/L (8-55); AST (SGOT) 58 U/L (5-34); Albumin 3.9 g/dL (3.4-4.8); Alkaline Phosphatase 68 U/L (40-110); BUN (Urea Nitrogen) 42 mg/dL (8.4-25.7); Bilirubin, Total 2.1 mg/dL (0.2-1.2); Calc. Creatinine Clearance 0 mL/min (70-130); Calcium 9.1 mg/dL (7.8-10.44); Globulin 3.4 g/dL (2.4-3.5); Glucose 175 mg/dL (80-115); Protein, Total 7.3 g/dL (5.8-8.1)
[2021-11-09] MEDS ORDERED: Dextrose 50% Abboject 50 ML SYRINGE SLOW IVP PRN (19:42)
[2021-11-09] MEDS ORDERED: Ondansetron PF 4 MG/2 ML Vial IVP PRN (19:42)
[2021-11-09] MEDS ORDERED: HumaLOG 300 UNITS/3 ML VIAL SC PRN (19:42)
[2021-11-09] MEDS ORDERED: Dextrose 5% in Water 1,000 ML IV PRN (19:42)
[2021-11-09 19:45] LABS: Anion Gap 23 mmol/L (10-20); Carbon Dioxide 34 mmol/L (23-31); Sodium 124 mmol/L (136-145)
[2021-11-09 20:00] LABS: Chloride 69 mmol/L (98-107); Potassium 2.1 mmol/L (3.5-5.1)
[2021-11-09] MEDS ORDERED: Lactated Ringer's 1,000 ML IV SCH (20:15)
[2021-11-09 20:16] LABS: Magnesium 2.1 mg/dL (1.6-2.6)
[2021-11-09 20:33] LABS: Puncture Site Arterial Line; pH, Arterial 7.73 (7.35-7.45)
[2021-11-09] MEDS ORDERED: Potassium Chloride 20 MEQ/100 ML PREMIX BAG ONE (21:03)
[2021-11-09 21:21] LABS: Bacteria/HPF None Seen HPF (None Seen); Bilirubin Negative (Negative); Blood, Urine Negative (Negative); Clarity Clear (Clear); Glucose, Urine (Dipstick) Normal (Negative); Ketone, Urine Negative (Negative); Leukocyte Negative Leu/uL (Negative); Nitrite Negative (Negative); Protein, Urine (Dipstick) 30 mg/dL (Neg-Trace); Specific Gravity, Urine 1.014 (1.002-1.036); Squamous Epithelial 0-3 HPF (0-3); Transitional Epithelial 0-3 HPF (None Seen); Urobilinogen Normal mg/dL (Less than 2); WBC/HPF 0-3 HPF (0-3); pH, Urine 7.5 (5.0-9.0)
[2021-11-09 22:06] LABS: Lactic Acid 3.2 mmol/L (0.5-2.2)
[2021-11-09 22:38] VITALS: BMI 14.4
[2021-11-09 22:42] LABS: Actual Bicarbonate (HCO3a) 35.4 mEq/L (22-28); Base Excess (BEa) 12.4 mEq/L (-2.0 to +3.0); CO2 Tension 39.1 mmHg (35.0-45.0); Calcium, Ionized (arterial) 1.14 mmol/L (1.12-1.30); Carboxyhemoglobin (COHb) 0.3 gm% (0.0-3.0); Hemoglobin (Hb) 9.5 g/dL (14.0-18.0)
[2021-11-09 22:44] LABS: pH, Arterial 7.58 (7.35-7.45)
[2021-11-09 22:45] LABS: Puncture Site Arterial Line
[2021-11-09 22:47] LABS: ALV-art Gradient 18.025 mmHg (0-20)
[2021-11-09] MEDS: Sodium Chloride 0.9% 1,000 ML IV SCH (23:03)
[2021-11-09] MEDS: Potassium Chloride 20 MEQ in Premix Bag 1 BAG IVPB SCH ×2 (23:04→23:08)
[2021-11-09] MEDS: Famotidine/PF 20 mg/2ml Vial SLOW IVP SCH (23:09)
[2021-11-09 23:46] LABS: SARS-CoV-2 NAA Rapid Test Not Detected (NotDetected)
[2021-11-10 03:32] LABS: #Lymphocytes 0.3 thou/uL (1.20-3.40); #Monocytes 1.2 thou/uL (0.11-0.59); #Neutrophils 7.6 thou/uL (1.40-6.50); %Eosinophils 0.1 % (0.0-10.0); %Lymphocytes 3.7 % (21.0-51.0); %Monocytes 13.1 % (0.0-10.0); %Neutrophils 83.1 % (42.0-75.0); Hemoglobin 8.8 g/dL (14.0-18.0); Mean Corpuscular HGB CONC 34.1 g/dL (32.0-36.0); Mean Corpuscular Hemoglobin 32.8 pg (27.0-31.0); Mean Corpuscular Volume 96.2 fL (78.0-98.0); Mean Platelet Volume 6.5 fL (7.4-10.4); Platelet Count 233 thou/uL (130-400); RBC Distribution Width 12.5 % (11.5-14.5); Red Blood Cell (RBC) Count 2.69 mill/uL (4.70-6.10); White Blood Cell (WBC) Count 9.2 thou/uL (4.8-10.8)
[2021-11-10 03:58] LABS: Anion Gap 16 mmol/L (10-20); BUN (Urea Nitrogen) 40 mg/dL (8.4-25.7); Calc. Creatinine Clearance 31 mL/min (70-130); Calcium 9.7 mg/dL (7.8-10.44); Carbon Dioxide 36 mmol/L (23-31); Chloride 81 mmol/L (98-107); Glucose 124 mg/dL (80-115); Magnesium 2.2 mg/dL (1.6-2.6); Phosphorus 2.8 mg/dL (2.3-4.7); Sodium 130 mmol/L (136-145)
[2021-11-10] MEDS: Potassium Chloride 20 MEQ in Premix Bag 1 BAG IVPB SCH ×2 (04:12→05:16)
[2021-11-10] MEDS: Sodium Chloride 0.9% 1,000 ML IV SCH ×4 (04:12→21:57)
[2021-11-10 04:48] VITALS: BP 108/44
[2021-11-10 06:57] LABS: Actual Bicarbonate (HCO3a) 37.1 mEq/L (22-28); Base Excess (BEa) 13.7 mEq/L (-2.0 to +3.0); CO2 Tension 41.5 mmHg (35.0-45.0); Calcium, Ionized (arterial) 1.11 mmol/L (1.12-1.30); Carboxyhemoglobin (COHb) 0.3 gm% (0.0-3.0); Hemoglobin (Hb) 12.3 g/dL (14.0-18.0); Potassium - ABG Lab 3.41 mmol/L (3.70-5.30)
[2021-11-10 07:46] LABS: pH, Arterial 7.57 (7.35-7.45)
[2021-11-10 07:47] LABS: ALV-art Gradient 17.025 mmHg (0-20); Puncture Site Arterial Line
[2021-11-10] MEDS ORDERED: Potassium Chloride 40 MEQ in Sodium Chloride 0.9% 250 ML 250 ML IVPB SCH (08:15)
[2021-11-10] MEDS: Famotidine/PF 20 mg/2ml Vial SLOW IVP SCH (20:38)
[2021-11-11 02:58] LABS: #Lymphocytes 0.3 thou/uL (1.20-3.40); #Monocytes 1.1 thou/uL (0.11-0.59); #Neutrophils 17.7 thou/uL (1.40-6.50); %Lymphocytes 1.4 % (21.0-51.0); %Monocytes 5.7 % (0.0-10.0); Hemoglobin 10.4 g/dL (14.0-18.0); Mean Corpuscular Hemoglobin 33.5 pg (27.0-31.0); Mean Corpuscular Volume 98.6 fL (78.0-98.0); Mean Platelet Volume 6.9 fL (7.4-10.4); Platelet Count 236 thou/uL (130-400); Red Blood Cell (RBC) Count 3.11 mill/uL (4.70-6.10)
[2021-11-11] MEDS ORDERED: Fentanyl 100 MCG/2 ML VIAL ONE (03:04)
[2021-11-11] MEDS ORDERED: fentaNYL Citrate-0.9 % NaCl/PF 100 ML IV SCH (03:15)
[2021-11-11] MEDS ORDERED: Amiodarone 150 MG, Admixture Fee 1 EACH in Dextrose 5% in Water 100 ML IVPB SCH (03:15)
[2021-11-11] MEDS ORDERED: Fentanyl BOLUS 250 ML IVPB PRN (03:15)
[2021-11-11] MEDS ORDERED: Fentanyl 100 MCG/2 ML VIAL SLOW IVP SCH (03:15)
[2021-11-11 03:37] LABS: Anion Gap 19 mmol/L (10-20); BUN (Urea Nitrogen) 29 mg/dL (8.4-25.7); Calc. Creatinine Clearance 39 mL/min (70-130); Calcium 9.4 mg/dL (7.8-10.44); Carbon Dioxide 25 mmol/L (23-31); Chloride 99 mmol/L (98-107); Glucose 150 mg/dL (80-115); Magnesium 2.1 mg/dL (1.6-2.6); Potassium 3.2 mmol/L (3.5-5.1); Sodium 140 mmol/L (136-145)
[2021-11-11] MEDS: Amiodarone 450 MG, Admixture Fee 1 EACH in Dextrose 5% in Water 250 ML IVPB SCH ×2 (03:46→11:09)
[2021-11-11 05:18] VITALS: TEMP 99.3
[2021-11-11 06:55] LABS: Actual Bicarbonate (HCO3a) 27.1 mEq/L (22-28); Base Excess (BEa) 4.3 mEq/L (-2.0 to +3.0); CO2 Tension 33.7 mmHg (35.0-45.0); Calcium, Ionized (arterial) 1.14 mmol/L (1.12-1.30); Carboxyhemoglobin (COHb) 0.3 gm% (0.0-3.0); Hemoglobin (Hb) 10.6 g/dL (14.0-18.0); O2 Tension (PaO2), arterial 142.8 mmHg (> 80.0); Potassium - ABG Lab 3.01 mmol/L (3.70-5.30); pH, Arterial 7.52 (7.35-7.45)
[2021-11-11 07:23] LABS: Puncture Site Arterial Line
[2021-11-11 07:24] LABS: ALV-art Gradient 28.975 mmHg (0-20)
[2021-11-11] MEDS ORDERED: Potassium Chloride 40 MEQ in Sodium Chloride 0.9% 250 ML 250 ML IVPB SCH (09:00)
[2021-11-11] MEDS ORDERED: Metoprolol Tartrate 5 MG/5 ML VIAL IVP SCH (12:15)
[2021-11-11] MEDS: Sodium Chloride 0.9% 1,000 ML IV SCH (13:14)
== END 2021-11-11 15:07 | disposition expired | DRG 82 ==
LOC: ERS 18:33 → CCU 19:42 → EEVIPCON 19:42 → CCU 21:51
PROVIDERS: ADMIT Physician Assistant; ATTEND Surgery
PROC: 5A1945Z Respiratory Ventilation, 24-96 Consecutive Hours (ICD-10-PCS; principal; 2021-11-09)
PROC: 03HY32Z Insertion of Monitoring Device into Upper Artery, Percutaneous Approach (ICD-10-PCS; 2021-11-09)
DX: J96.01 Acute respiratory failure with hypoxia; S06.A1XA Traumatic brain compression with herniation, initial encounter; R64 Cachexia; E87.2 Acidosis; E87.1 Hypo-osmolality and hyponatremia; E87.3 Alkalosis; Z68.1 Body mass index [BMI] 19.9 or less, adult; G93.40 Encephalopathy, unspecified; Z20.822 Contact with and (suspected) exposure to COVID-19; Z66 Do not resuscitate; W18.30XA Fall on same level, unspecified, initial encounter; R40.2112 Coma scale, eyes open, never, at arrival to emergency department; R40.2312 Coma scale, best motor response, none, at arrival to emergency department; E87.6 Hypokalemia; I25.5 Ischemic cardiomyopathy; R40.20 Unspecified coma; I95.9 Hypotension, unspecified; Z79.01 Long term (current) use of anticoagulants; Z95.0 Presence of cardiac pacemaker; Y92.143 Cell of prison as the place of occurrence of the external cause; Z79.82 Long term (current) use of aspirin; Z79.899 Other long term (current) drug therapy; I48.91 Unspecified atrial fibrillation
CPT/HCPCS: 31500; 36415; 36416; 51702; 70450; 70496; 71045; 72125; 80048; 80053; 81003; 81015; 82805; 83605; 83735; 83930; 84100; 85025; 85610; 85730; 86850; 86900; 86901; 93005; 93010; 94002; 94003; 94760; 96365; 96375; G0390; J0282; J2001; J2150; J2370; J3010; J3480; J7050; J7070; J7799; Q9967; S0028; U0002